=== PATIENT | male | born 1965 | race Caucasian/White ===

== ENCOUNTER 2017-09-22 14:44 | Inpatient (IN) | payer MEDICARE, OTHER ==
[~2017-09-22] VITALS: Ht 175.3 cm; Wt 86.6 kg
[~2017-09-22 14:44] MED LIST: CARV-50 PO; ENOX30SY10 SUBCUT; ENOX80SY7 SUBCUT; FURO40TA4 PO; LABE100T PO; LISI-600 PO; SPIR25TA5 PO
[2017-09-22 15:20] LABS: BASOPHILS % (AUTO) 0.4 % (0-1); EOSINOPHILS # (AUTO) 0.1 X10'3 (0-0.9); EOSINOPHILS % (AUTO) 0.9 % (0-6); HEMATOCRIT 46.5 % (42.0-52.0); HEMOGLOBIN 15.9 g/dl (14.0-17.9); LYMPHOCYTES # (AUTO) 1.6 X10'3 (1.1-4.8); LYMPHOCYTES % (AUTO) 24.1 % (21-51); MEAN CORPUSCULAR HEMOGLOBIN 32.8 PG (27.0-31.0); MEAN CORPUSCULAR HGB CONC 34.3 % (33.0-36.5); MEAN CORPUSCULAR VOLUME 95.7 FL (78-98); MONOCYTES # (AUTO) 0.4 X10'3 (0-0.9); MONOCYTES % (AUTO) 5.5 % (2-12); NEUTROPHILS # (AUTO) 4.7 X10'3 (1.8-7.7); NEUTROPHILS % (AUTO) 69.1 % (42-75); PLATELET COUNT 139 X10'3 (140-440); RED BLOOD COUNT 4.86 X10'6 (4.70-6.10); RED CELL DISTRIBUTION WIDTH 14.6 % (11.5-14.5); WHITE BLOOD COUNT 6.8 X10'3 (4.5-11.0)
[2017-09-22 15:37] LABS: INR 1.2 INR; PARTIAL THROMBOPLASTIN TIME 25 SECONDS (22-32)
[2017-09-22 15:41] LABS: ALANINE AMINOTRANSFERASE 45 U/L (12-78); ALBUMIN 3.6 G/DL (3.4-5.0); ALBUMIN/GLOBULIN RATIO 0.8 (1.1-1.5); ALKALINE PHOSPHATASE 70 IU/L (46-116); ANION GAP 10 (8-16); ASPARTATE AMINO TRANSFERASE 39 U/L (10-37); BILIRUBIN,TOTAL 1.1 MG/DL (0.1-1.0); BLOOD UREA NITROGEN 14 MG/DL (7-18); BUN/CREATININE RATIO 10.7 (5.4-32.0); CALCIUM 8.7 MG/DL (8.5-10.1); CHLORIDE 107 MMOL/L (99-107); CREATININE 1.31 MG/DL (0.60-1.10); GLUCOSE 110 MG/DL (70-104); POTASSIUM 3.8 MMOL/L (3.5-5.1); SODIUM 142 MMOL/L (135-145); TOTAL PROTEIN 7.9 G/DL (6.4-8.2); eGFR 57 ML/MIN
[2017-09-22] MEDS ORDERED: aspirin 81mg tab.chew PO ONE (16:10)
[2017-09-22] MEDS ORDERED: metoprolol tartrate 1mg/ml inj IV ONE ×3 (16:10→23:20)
[2017-09-22] MEDS ORDERED: hydrALAZINE 20mg/ml inj. IV ONE (16:40)
[2017-09-22] MEDS ORDERED: ondansetron/PF 4mg/2ml inj IV PRN (16:55)
[2017-09-22] MEDS ORDERED: morphine 4 MG/ML inj SYRINge IV PRN ×2 (16:55)
[2017-09-22] MEDS ORDERED: mag hydrox/Alum hydrox/simeth 30ml oral suspension PO PRN (16:55)
[2017-09-22] MEDS ORDERED: HYDROcodone/acetaminophen 5mg/325mg tablet PO PRN (16:55)
[2017-09-22] MEDS ORDERED: HYDROcodone/acetaminophen 10/325mg tab PO PRN (16:55)
[2017-09-22] MEDS ORDERED: magnesium hydroxide 30ml (MOM) UD suspension PO PRN (16:55)
[2017-09-22] MEDS ORDERED: furosemide 40mg/4ml inj IV SCH (16:55)
[2017-09-22] MEDS ORDERED: acetaminophen 325mg tablet PO PRN (16:55)
[2017-09-22] MEDS ORDERED: SPIR25TA5 PO (17:25)
[2017-09-22] MEDS ORDERED: WARF-55 PO (18:25)
[2017-09-22] MEDS ORDERED: FURO-150 PO (18:26)
[2017-09-22 19:00] VITALS: BP 145/111
[2017-09-22 23:00] VITALS: BP 167/120
[2017-09-22] MEDS ORDERED: metoprolol tartrate 25mg tablet PO ONE (23:20)
[2017-09-23] VITALS (7 sets, daily range): BP systolic 119–193; BP diastolic 75–117
[2017-09-23 04:00] LABS: BASOPHILS # (AUTO) 0.1 X10'3 (0-0.2); BASOPHILS % (AUTO) 0.8 % (0-1); EOSINOPHILS % (AUTO) 0.5 % (0-6); HEMATOCRIT 45.9 % (42.0-52.0); HEMOGLOBIN 15.9 g/dl (14.0-17.9); LYMPHOCYTES # (AUTO) 2.4 X10'3 (1.1-4.8); LYMPHOCYTES % (AUTO) 31.7 % (21-51); MEAN CORPUSCULAR HEMOGLOBIN 33.2 PG (27.0-31.0); MEAN CORPUSCULAR HGB CONC 34.5 % (33.0-36.5); MEAN PLATELET VOLUME 9.5 FL (7.4-10.4); MONOCYTES # (AUTO) 0.5 X10'3 (0-0.9); MONOCYTES % (AUTO) 6.2 % (2-12); NEUTROPHILS # (AUTO) 4.6 X10'3 (1.8-7.7); NEUTROPHILS % (AUTO) 60.8 % (42-75); PLATELET COUNT 141 X10'3 (140-440); RED BLOOD COUNT 4.79 X10'6 (4.70-6.10); RED CELL DISTRIBUTION WIDTH 14.4 % (11.5-14.5); WHITE BLOOD COUNT 7.5 X10'3 (4.5-11.0)
[2017-09-23 04:15] LABS: ALBUMIN 3.4 G/DL (3.4-5.0); ANION GAP 6 (8-16); BLOOD UREA NITROGEN 21 MG/DL (7-18); BUN/CREATININE RATIO 15.3 (5.4-32.0); CALCIUM 9.2 MG/DL (8.5-10.1); CHLORIDE 106 MMOL/L (99-107); CREATININE 1.37 MG/DL (0.60-1.10); GLUCOSE 102 MG/DL (70-104); POTASSIUM 3.9 MMOL/L (3.5-5.1); SODIUM 142 MMOL/L (135-145); TOTAL CARBON DIOXIDE 29.8 MMOL/L (24-32); eGFR 54 ML/MIN
[2017-09-23] MEDS ORDERED: pneumococcal 23-VAL P-sac vacc 25 mcg/0.5ml vial IMVAC ONE (06:25)
[2017-09-23] MEDS: furosemide 40mg/4ml inj IV SCH ×2 (07:53→19:46)
[2017-09-23] MEDS ORDERED: enoxaparin 40mg/0.4ml syringe SUBCUT SCH (08:00)
[2017-09-23] MEDS ORDERED: lisinopril 20mg tablet PO ONE (12:10)
[2017-09-23] MEDS ORDERED: carVEDilol 12.5mg tablet PO ONE (12:10)
[2017-09-23] MEDS: rivaroxaban 20mg tablet PO SCH (15:51)
[2017-09-23] MEDS: lisinopril 20mg tablet PO SCH (19:45)
[2017-09-23] MEDS: carVEDilol 12.5mg tablet PO SCH (19:45)
[2017-09-23] MEDS ORDERED: carVEDilol 12.5mg tablet PO SCH ×2 (20:00)
[2017-09-23] MEDS ORDERED: lisinopril 20mg tablet PO SCH ×2 (20:00)
[2017-09-23] MEDS ORDERED: LORazepam 0.5 MG tablet PO PRN (20:35)
[2017-09-24 03:00] VITALS: BP 139/101
[2017-09-24 05:38] LABS: INR 1.4 INR; PROTHROMBIN TIME 14.1 SECONDS (9.0-12.0)
[2017-09-24 05:46] LABS: BASOPHILS % (AUTO) 0.4 % (0-1); EOSINOPHILS # (AUTO) 0.1 X10'3 (0-0.9); EOSINOPHILS % (AUTO) 1.5 % (0-6); HEMATOCRIT 45.7 % (42.0-52.0); HEMOGLOBIN 15.7 g/dl (14.0-17.9); LYMPHOCYTES # (AUTO) 2.8 X10'3 (1.1-4.8); LYMPHOCYTES % (AUTO) 35.4 % (21-51); MEAN CORPUSCULAR HEMOGLOBIN 32.5 PG (27.0-31.0); MEAN CORPUSCULAR HGB CONC 34.3 % (33.0-36.5); MEAN CORPUSCULAR VOLUME 94.9 FL (78-98); MEAN PLATELET VOLUME 9.7 FL (7.4-10.4); MONOCYTES # (AUTO) 0.5 X10'3 (0-0.9); MONOCYTES % (AUTO) 5.8 % (2-12); NEUTROPHILS # (AUTO) 4.5 X10'3 (1.8-7.7); NEUTROPHILS % (AUTO) 56.9 % (42-75); PLATELET COUNT 142 X10'3 (140-440); RED BLOOD COUNT 4.81 X10'6 (4.70-6.10); RED CELL DISTRIBUTION WIDTH 14.5 % (11.5-14.5)
[2017-09-24 05:49] LABS: ALBUMIN 3.1 G/DL (3.4-5.0); ANION GAP 10 (8-16); BLOOD UREA NITROGEN 22 MG/DL (7-18); BUN/CREATININE RATIO 17.2 (5.4-32.0); CALCIUM 8.5 MG/DL (8.5-10.1); CHLORIDE 101 MMOL/L (99-107); CREATININE 1.28 MG/DL (0.60-1.10); GLUCOSE 118 MG/DL (70-104); POTASSIUM 3.2 MMOL/L (3.5-5.1); SODIUM 138 MMOL/L (135-145); TOTAL CARBON DIOXIDE 26.9 MMOL/L (24-32); eGFR 59 ML/MIN
[2017-09-24 06:00] VITALS: BP 139/95
[2017-09-24] MEDS: lisinopril 20mg tablet PO SCH (07:34)
[2017-09-24] MEDS: carVEDilol 12.5mg tablet PO SCH (07:34)
[2017-09-24] MEDS: furosemide 40mg/4ml inj IV SCH (07:35)
[2017-09-24] MEDS: rivaroxaban 20mg tablet PO SCH (07:35)
[2017-09-24] MEDS ORDERED: spironolactone 25 MG tablet PO SCH (08:00)
[2017-09-24 11:50] VITALS: BP 122/65
[2017-09-24] MEDS ORDERED: ASPI81TA52 PO (12:22)
[2017-09-24] MEDS ORDERED: RIVA20TA PO (12:22)
[2017-09-24] MEDS ORDERED: warfarin 5mg tablet PO SCH (21:00)
== END 2017-09-24 15:10 | disposition home or self-care (01) | DRG 291 ==
LOC: ER 14:44 → ED HOLD 16:51 → CMPBEDREQ 19:48 → PCU 3S 19:48
PROVIDERS: ADMIT Internal Medicine; ATTEND Family Medicine
DX: I13.0 Hypertensive heart and chronic kidney disease with heart failure and stage 1 through stage 4 chronic kidney disease, or unspecified chronic kidney disease (principal); J96.01 Acute respiratory failure with hypoxia; I50.23 Acute on chronic systolic (congestive) heart failure; N18.3 Chronic kidney disease, stage 3 (moderate); I16.0 Hypertensive urgency; I25.10 Atherosclerotic heart disease of native coronary artery without angina pectoris; G47.30 Sleep apnea, unspecified; J44.9 Chronic obstructive pulmonary disease, unspecified; F15.90 Other stimulant use, unspecified, uncomplicated; R74.8 Abnormal levels of other serum enzymes; I48.0 Paroxysmal atrial fibrillation; F17.210 Nicotine dependence, cigarettes, uncomplicated; I25.2 Old myocardial infarction; Z79.899 Other long term (current) drug therapy; Z79.82 Long term (current) use of aspirin; Z79.01 Long term (current) use of anticoagulants; Z86.711 Personal history of pulmonary embolism; Z83.3 Family history of diabetes mellitus; Z82.49 Family history of ischemic heart disease and other diseases of the circulatory system; Z23 Encounter for immunization
CPT/HCPCS: 36415; 71045; 80048; 80053; 83880; 84484; 85025; 85610; 85730; 87070; 90732; 93005; 93306; 96374; 96375; 96376; 99285; J0360; J1650; J1940; J3490

== ENCOUNTER 2017-12-10 16:35 | Inpatient (IN) | payer MEDICARE, OTHER ==
[~2017-12-10] VITALS: Ht 175.3 cm; Wt 77.7 kg
[~2017-12-10 16:35] MED LIST changes: +ASPI81TA52 PO; -ENOX30SY10 SUBCUT; -ENOX80SY7 SUBCUT; +FURO-150 PO; -FURO40TA4 PO; -LABE100T PO; +RIVA20TA PO; +etomidate 2mg/ml inj. ONE
[2017-12-10 17:33] LABS: BASOPHILS % (AUTO) 0.2 % (0-1); EOSINOPHILS # (AUTO) 0.1 X10'3 (0-0.9); EOSINOPHILS % (AUTO) 0.9 % (0-6); HEMATOCRIT 49.6 % (42.0-52.0); HEMOGLOBIN 16.5 g/dl (14.0-17.9); LYMPHOCYTES # (AUTO) 1.5 X10'3 (1.1-4.8); LYMPHOCYTES % (AUTO) 17.9 % (21-51); MEAN CORPUSCULAR HEMOGLOBIN 31.5 PG (27.0-31.0); MEAN CORPUSCULAR HGB CONC 33.3 % (33.0-36.5); MEAN CORPUSCULAR VOLUME 94.3 FL (78-98); MONOCYTES # (AUTO) 0.5 X10'3 (0-0.9); MONOCYTES % (AUTO) 5.9 % (2-12); NEUTROPHILS # (AUTO) 6.4 X10'3 (1.8-7.7); NEUTROPHILS % (AUTO) 75.1 % (42-75); PLATELET COUNT 220 X10'3 (140-440); RED BLOOD COUNT 5.25 X10'6 (4.70-6.10); RED CELL DISTRIBUTION WIDTH 15.7 % (11.5-14.5); WHITE BLOOD COUNT 8.6 X10'3 (4.5-11.0)
[2017-12-10 17:44] LABS: INR 1.7 INR; PROTHROMBIN TIME 17.3 SECONDS (9.0-12.0)
[2017-12-10 17:50] LABS: ALANINE AMINOTRANSFERASE 51 U/L (12-78); ALBUMIN 3.6 G/DL (3.4-5.0); ALBUMIN/GLOBULIN RATIO 0.8 (1.1-1.5); ALKALINE PHOSPHATASE 96 IU/L (46-116); ANION GAP 16 (8-16); ASPARTATE AMINO TRANSFERASE 68 U/L (10-37); BILIRUBIN,TOTAL 2.7 MG/DL (0.1-1.0); BLOOD UREA NITROGEN 24 MG/DL (7-18); BUN/CREATININE RATIO 15.3 (5.4-32.0); CALCIUM 9.1 MG/DL (8.5-10.1); CHLORIDE 106 MMOL/L (99-107); CREATININE 1.57 MG/DL (0.60-1.10); GLUCOSE 97 MG/DL (70-104); POTASSIUM 4.6 MMOL/L (3.5-5.1); SODIUM 145 MMOL/L (135-145); TOTAL CARBON DIOXIDE 23.2 MMOL/L (24-32); TOTAL PROTEIN 8.3 G/DL (6.4-8.2); eGFR 46 ML/MIN
[2017-12-10 17:58] LABS: LIPASE 57 U/L (73-393)
[2017-12-10] MEDS ORDERED: aspirin 81mg tab.chew PO ONE (19:00)
[2017-12-10 19:05] LABS: CLARITY,URINE CLEAR (Clear); COLOR,URINE YELLOW (Yellow); GLUCOSE, URINE NEGATIVE (Neg); KETONES,URINE NEGATIVE (Neg); LEUKOCYTE ESTERASE ,URINE NEGATIVE (Neg); NITRITES, URINE NEGATIVE (Neg); OCCULT BLOOD,URINE TRACE-INTACT (Neg); PROTEIN,URINE 30 mg/dl (Neg); UROBILINOGEN,URINE 0.2 E.U/dL (0.2-1.0)
[2017-12-10] MEDS ORDERED: LORazepam 2 mg/ml vial IV ONE (19:05)
[2017-12-10 19:13] LABS: UA COLLECTION TYPE VOIDED
[2017-12-10 19:22] LABS: BACTERIA,URINE NONE SEEN /HPF (Neg); MUCUS STRANDS NONE SEEN /LPF (Neg); RBC,URINE NONE SEEN /HPF (0-2); SQUAMOUS EPITHELIAL CELL,UR FEW /LPF (FEW); WBC,URINE NONE SEEN /HPF (0-4)
[2017-12-10] MEDS ORDERED: SPIRONOLACT TAB 25MG (19:30)
[2017-12-10] MEDS ORDERED: CARVEDILOL 12.5 MG (19:30)
[2017-12-10] MEDS ORDERED: LABETALOL 100 MG (19:30)
[2017-12-10] MEDS ORDERED: LISINOPRIL 20 MG (19:30)
[2017-12-10] MEDS ORDERED: FUROSEMIDE TAB 40MG (19:30)
[2017-12-10 19:59] LABS: URINE AMPHETAMINE SCREEN POSITIVE (Neg); URINE BARBITUATE SCREEN NEGATIVE (Neg); URINE BENZODIAZEPINES SCREEN NEGATIVE (Neg); URINE CANNABINOID SCREEN POSITIVE (Neg); URINE COCAINE SCREEN NEGATIVE (Neg); URINE METHADONE SCREEN NEGATIVE (Neg); URINE OPIATE SCREEN NEGATIVE (Neg); URINE PHENCYCLIDINE SCREEN NEGATIVE (Neg)
[2017-12-10] MEDS ORDERED: etomidate 2mg/ml inj. IV ONE ×2 (20:40→21:25)
[2017-12-10] MEDS ORDERED: midazolam 100mg in NS 100ml 100 ML IV ONE (20:40)
[2017-12-10] MEDS ORDERED: succinylcholine 20mg/ml inj IV ONE (20:40)
[2017-12-10] MEDS ORDERED: fentaNYL/PF 50MCG/1 ML 2ML syringe IV ONE (20:40)
[2017-12-10] MEDS: FENTANYL-0.9 % NACL/PF 100 ML IV PRN (21:20)
[2017-12-10] MEDS ORDERED: midazolam 100mg in NS 100ml 100 ML IV PRN (21:51)
[2017-12-10] MEDS ORDERED: FENTANYL-0.9 % NACL/PF 100 ML IV PRN (21:51)
[2017-12-10] MEDS ORDERED: potassium Cl 40MEQ/250ML bag 250 ML IV PRN (21:55)
[2017-12-10] MEDS ORDERED: potassium Cl 40MEQ/250ML bag 250 ML IV SCH (21:55)
[2017-12-10] MEDS ORDERED: acetaminophen 325mg tablet PO PRN ×2 (21:55)
[2017-12-10] MEDS ORDERED: morphine 2 MG/ML inj. syringe IV PRN (21:55)
[2017-12-10] MEDS ORDERED: morphine 4 MG/ML inj SYRINge IV PRN (21:55)
[2017-12-10] MEDS ORDERED: ipratropium/albuterol 3ml nebule NEB PRN (21:55)
[2017-12-10] MEDS ORDERED: ondansetron/PF 4mg/2ml inj IV PRN (21:55)
[2017-12-10] MEDS ORDERED: potassium Cl 20 mEq SR tablet PO PRN ×2 (21:55)
[2017-12-10 22:11] LABS: ABG BASE EXCESS -11.7 mmol/L (-2.0-3.0); ABG HCO3 14.5 mmol/L (22.0-26.0); ABG OXYGEN SATURATION 99.2 % (95-98); ABG PCO2 (T) 35.5 mmHg (35.0-48.0); ABG PH (T) 7.233 (7.350-7.450); ALLEN'S TEST Positive; FCOHb 0.8 % (0.5-1.5); FMetHb 0.4 % (0.3-1.12); MINUTE VOLUME 16 L/min; PATIENT TEMPERATURE 37.6; PEEP 5 cm H2O; RESPIRATORY RATE 16 b/min; RESPIRATORY RATE (OBSERVED) 30 b/min; TIDAL VOLUME 500 mL; TOTAL HEMOGLOBIN 17.9 G/dl (14.0-18.0)
[2017-12-10] MEDS: K, MAG and/or Phos replacement - Verify level? MC SCH (22:50)
[2017-12-10] MEDS: normal saline 1000ml 1,000 ML IV SCH (22:50)
[2017-12-10 23:00] VITALS: BP 203/97
[2017-12-11] VITALS (24 sets, daily range): BP systolic 121–185; BP diastolic 62–108
[2017-12-11] MEDS: normal saline 1000ml 1,000 ML IV SCH ×2 (02:19→16:47)
[2017-12-11] MEDS: propofol 1000mg/100ml bottle 100 ML IV PRN ×2 (02:19→20:37)
[2017-12-11 02:46] LABS: ABG BASE EXCESS -5.1 mmol/L (-2.0-3.0); ABG HCO3 20.5 mmol/L (22.0-26.0); ABG PCO2 (T) 40.5 mmHg (35.0-48.0); ABG PH (T) 7.323 (7.350-7.450); ABG PO2 (T) 184.2 mmHg (83-108); ALLEN'S TEST Positive; FCOHb 0.5 % (0.5-1.5); FMetHb 0.4 % (0.3-1.12); FO2Hb 98.1 % (94-100); MINUTE VOLUME 9 L/min; PATIENT TEMPERATURE 37.4; PEEP 5 cm H2O; RESPIRATORY RATE 16 b/min; RESPIRATORY RATE (OBSERVED) 17 b/min; TIDAL VOLUME 500 mL; TOTAL HEMOGLOBIN 15.7 G/dl (14.0-18.0)
[2017-12-11 04:06] LABS: ABG BASE EXCESS -5.4 mmol/L (-2.0-3.0); ABG HCO3 19.8 mmol/L (22.0-26.0); ABG OXYGEN SATURATION 96.4 % (95-98); ABG PCO2 (T) 38.1 mmHg (35.0-48.0); ABG PH (T) 7.335 (7.350-7.450); ABG PO2 (T) 98.3 mmHg (83-108); ALLEN'S TEST Positive; FCOHb 0.4 % (0.5-1.5); FMetHb 0.3 % (0.3-1.12); FO2Hb 95.7 % (94-100); MINUTE VOLUME 8 L/min; PATIENT TEMPERATURE 37.3; PEEP 5 cm H2O; RESPIRATORY RATE 16 b/min; RESPIRATORY RATE (OBSERVED) 16 b/min; TIDAL VOLUME 500 mL; TOTAL HEMOGLOBIN 15.4 G/dl (14.0-18.0)
[2017-12-11 04:09] LABS: BASOPHILS % (AUTO) 0.1 % (0-1); EOSINOPHILS # (AUTO) 0.1 X10'3 (0-0.9); EOSINOPHILS % (AUTO) 0.7 % (0-6); HEMATOCRIT 43.3 % (42.0-52.0); HEMOGLOBIN 14.5 g/dl (14.0-17.9); LYMPHOCYTES # (AUTO) 1.7 X10'3 (1.1-4.8); LYMPHOCYTES % (AUTO) 18.6 % (21-51); MEAN CORPUSCULAR HEMOGLOBIN 31.4 PG (27.0-31.0); MEAN CORPUSCULAR HGB CONC 33.5 % (33.0-36.5); MEAN PLATELET VOLUME 8.9 FL (7.4-10.4); MONOCYTES # (AUTO) 0.7 X10'3 (0-0.9); MONOCYTES % (AUTO) 7.6 % (2-12); NEUTROPHILS # (AUTO) 6.7 X10'3 (1.8-7.7); PLATELET COUNT 180 X10'3 (140-440); RED BLOOD COUNT 4.61 X10'6 (4.70-6.10); RED CELL DISTRIBUTION WIDTH 15.1 % (11.5-14.5); WHITE BLOOD COUNT 9.2 X10'3 (4.5-11.0)
[2017-12-11 04:26] LABS: ALANINE AMINOTRANSFERASE 43 U/L (12-78); ALBUMIN 2.8 G/DL (3.4-5.0); ALBUMIN/GLOBULIN RATIO 0.7 (1.1-1.5); ALKALINE PHOSPHATASE 74 IU/L (46-116); ANION GAP 11 (8-16); ASPARTATE AMINO TRANSFERASE 62 U/L (10-37); BILIRUBIN,TOTAL 1.8 MG/DL (0.1-1.0); BLOOD UREA NITROGEN 30 MG/DL (7-18); CHLORIDE 114 MMOL/L (99-107); CREATININE 1.67 MG/DL (0.60-1.10); GLUCOSE 109 MG/DL (70-104); PHOSPHORUS 4.9 MG/DL (2.3-4.5); POTASSIUM 4.3 MMOL/L (3.5-5.1); SODIUM 149 MMOL/L (135-145); TOTAL CARBON DIOXIDE 23.9 MMOL/L (24-32); TOTAL PROTEIN 6.7 G/DL (6.4-8.2); TROPONIN I 0.21 NG/ML (0.0-0.05); eGFR 43 ML/MIN
[2017-12-11] MEDS ORDERED: midazolam 100mg in NS 100ml 100 ML IV ONE (05:45)
[2017-12-11] MEDS: FENTANYL-0.9 % NACL/PF 100 ML IV PRN ×2 (06:57→17:00)
[2017-12-11] MEDS ORDERED: LABE100T5 PO (07:31)
[2017-12-11] MEDS ORDERED: SPIR25TA5 PO (07:31)
[2017-12-11] MEDS: pantoprazole 40 MG vial IV SCH (07:49)
[2017-12-11] MEDS: K, MAG and/or Phos replacement - Verify level? MC SCH (08:30)
[2017-12-11] MEDS ORDERED: OLANZapine 2.5MG tablet PO SCH (10:45)
[2017-12-11] MEDS ORDERED: olanzapine 10mg tablet PO SCH (10:47)
[2017-12-11] MEDS ORDERED: RIVA20TA PO (10:53)
[2017-12-11] MEDS ORDERED: ASPI-611 PO (10:54)
[2017-12-11] MEDS: midazolam 100mg in NS 100ml 100 ML IV SCH (12:29)
[2017-12-11] MEDS ORDERED: labetalol 100mg tablet PO SCH (13:00)
[2017-12-11] MEDS ORDERED: acetaminophen 325mg tablet PEG PRN (13:31)
[2017-12-11] MEDS ORDERED: potassium Cl oral solution 20 MEQ/15 ML PO PRN (13:35)
[2017-12-11] MEDS: carVEDilol 12.5mg tablet PEG SCH (20:37)
[2017-12-11] MEDS: labetalol 100mg tablet PEG SCH (22:54)
[2017-12-12] VITALS (24 sets, daily range): BP systolic 109–170; BP diastolic 60–107
[2017-12-12] MEDS: midazolam 100mg in NS 100ml 100 ML IV SCH (00:49)
[2017-12-12] MEDS: mineral oil/petrolatum ophthal oint EACHEYE SCH ×4 (02:18→22:00)
[2017-12-12 03:20] LABS: BASOPHILS % (AUTO) 0.5 % (0-1); EOSINOPHILS # (AUTO) 0.1 X10'3 (0-0.9); EOSINOPHILS % (AUTO) 1.2 % (0-6); HEMOGLOBIN 14.2 g/dl (14.0-17.9); LYMPHOCYTES # (AUTO) 1.6 X10'3 (1.1-4.8); LYMPHOCYTES % (AUTO) 18.1 % (21-51); MEAN CORPUSCULAR HEMOGLOBIN 31.5 PG (27.0-31.0); MEAN CORPUSCULAR VOLUME 95.5 FL (78-98); MEAN PLATELET VOLUME 9.1 FL (7.4-10.4); MONOCYTES # (AUTO) 0.5 X10'3 (0-0.9); MONOCYTES % (AUTO) 5.9 % (2-12); NEUTROPHILS # (AUTO) 6.7 X10'3 (1.8-7.7); NEUTROPHILS % (AUTO) 74.3 % (42-75); PLATELET COUNT 154 X10'3 (140-440); RED BLOOD COUNT 4.51 X10'6 (4.70-6.10); RED CELL DISTRIBUTION WIDTH 15.7 % (11.5-14.5); WHITE BLOOD COUNT 9.1 X10'3 (4.5-11.0)
[2017-12-12] MEDS: FENTANYL-0.9 % NACL/PF 100 ML IV PRN (03:26)
[2017-12-12 03:34] LABS: ALANINE AMINOTRANSFERASE 40 U/L (12-78); ALBUMIN 2.3 G/DL (3.4-5.0); ALBUMIN/GLOBULIN RATIO 0.6 (1.1-1.5); ALKALINE PHOSPHATASE 61 IU/L (46-116); ANION GAP 7 (8-16); ASPARTATE AMINO TRANSFERASE 52 U/L (10-37); BLOOD UREA NITROGEN 34 MG/DL (7-18); BUN/CREATININE RATIO 19.8 (5.4-32.0); CHLORIDE 115 MMOL/L (99-107); CREATININE 1.72 MG/DL (0.60-1.10); GLUCOSE 102 MG/DL (70-104); MAGNESIUM 1.8 MG/DL (1.5-2.4); SODIUM 148 MMOL/L (135-145); TOTAL CARBON DIOXIDE 26.5 MMOL/L (24-32); eGFR 42 ML/MIN
[2017-12-12 05:16] LABS: ABG BASE EXCESS -3.3 mmol/L (-2.0-3.0); ABG HCO3 22.1 mmol/L (22.0-26.0); ABG OXYGEN SATURATION 94.3 % (95-98); ABG PCO2 (T) 41.7 mmHg (35.0-48.0); ABG PH (T) 7.343 (7.350-7.450); ALLEN'S TEST Positive; FCOHb 0.7 % (0.5-1.5); FMetHb 0.4 % (0.3-1.12); FO2Hb 93.3 % (94-100); MINUTE VOLUME 9 L/min; PATIENT TEMPERATURE 37.4; PEEP 5 cm H2O; RESPIRATORY RATE 16 b/min; RESPIRATORY RATE (OBSERVED) 16 b/min; TIDAL VOLUME 500 mL; TOTAL HEMOGLOBIN 15.2 G/dl (14.0-18.0)
[2017-12-12] MEDS: olanzapine 10mg tablet PEG SCH (07:14)
[2017-12-12] MEDS: labetalol 100mg tablet PEG SCH ×3 (07:14→22:00)
[2017-12-12] MEDS: carVEDilol 12.5mg tablet PEG SCH ×2 (07:14→21:59)
[2017-12-12] MEDS: pantoprazole 40 MG vial IV SCH (07:15)
[2017-12-12] MEDS: normal saline 1000ml 1,000 ML IV SCH ×2 (07:15→22:00)
[2017-12-12] MEDS ORDERED: non-formulary drug (Aspirin (Aspir 81) 1 TAB) PO SCH (08:00)
[2017-12-12] MEDS: K, MAG and/or Phos replacement - Verify level? MC SCH (08:00)
[2017-12-12] MEDS: aspirin 81mg tab.chew PEG SCH (09:22)
[2017-12-12] MEDS: magnesium 1gm/100ml D5W IVPB 100 ML IV SCH ×2 (13:37→14:42)
[2017-12-13] VITALS (23 sets, daily range): BP systolic 109–167; BP diastolic 57–102
[2017-12-13] MEDS: mineral oil/petrolatum ophthal oint EACHEYE SCH ×4 (02:00→20:52)
[2017-12-13 03:36] LABS: ANION GAP 9 (8-16); BLOOD UREA NITROGEN 33 MG/DL (7-18); CHLORIDE 113 MMOL/L (99-107); GLUCOSE 156 MG/DL (70-104); SODIUM 147 MMOL/L (135-145); TOTAL CARBON DIOXIDE 24.6 MMOL/L (24-32)
[2017-12-13 03:37] LABS: ALANINE AMINOTRANSFERASE 39 U/L (12-78); ALBUMIN 2.3 G/DL (3.4-5.0); ALBUMIN/GLOBULIN RATIO 0.6 (1.1-1.5); ALKALINE PHOSPHATASE 70 IU/L (46-116); ASPARTATE AMINO TRANSFERASE 47 U/L (10-37); BILIRUBIN,TOTAL 0.9 MG/DL (0.1-1.0); BUN/CREATININE RATIO 22.9 (5.4-32.0); CALCIUM 7.4 MG/DL (8.5-10.1); CREATININE 1.44 MG/DL (0.60-1.10); PHOSPHORUS 2.5 MG/DL (2.3-4.5); TOTAL PROTEIN 6.4 G/DL (6.4-8.2); eGFR 51 ML/MIN
[2017-12-13 03:41] LABS: POTASSIUM 4.8 MMOL/L (3.5-5.1)
[2017-12-13 04:16] LABS: ABG BASE EXCESS -3.4 mmol/L (-2.0-3.0); ABG HCO3 21.9 mmol/L (22.0-26.0); ABG OXYGEN SATURATION 95.9 % (95-98); ABG PCO2 (T) 42.6 mmHg (35.0-48.0); ABG PH (T) 7.335 (7.350-7.450); ABG PO2 (T) 92.3 mmHg (83-108); ALLEN'S TEST Positive; FCOHb 0.6 % (0.5-1.5); FMetHb 0.2 % (0.3-1.12); FO2Hb 95.1 % (94-100); MINUTE VOLUME 9 L/min; PATIENT TEMPERATURE 38.2; PEEP 5 cm H2O; RESPIRATORY RATE 16 b/min; RESPIRATORY RATE (OBSERVED) 16 b/min; TIDAL VOLUME 500 mL; TOTAL HEMOGLOBIN 15.7 G/dl (14.0-18.0)
[2017-12-13 06:36] LABS: HEMATOCRIT 44.3 % (42.0-52.0); HEMOGLOBIN 14.6 g/dl (14.0-17.9); MEAN CORPUSCULAR HEMOGLOBIN 31.7 PG (27.0-31.0); MEAN CORPUSCULAR HGB CONC 33.1 % (33.0-36.5); MEAN CORPUSCULAR VOLUME 95.8 FL (78-98); MEAN PLATELET VOLUME 9.4 FL (7.4-10.4); PLATELET COUNT 141 X10'3 (140-440); RED BLOOD COUNT 4.62 X10'6 (4.70-6.10); RED CELL DISTRIBUTION WIDTH 15.8 % (11.5-14.5); WHITE BLOOD COUNT 8.9 X10'3 (4.5-11.0)
[2017-12-13 07:31] LABS: ANISOCYTOSIS 1+; PLATELET ESTIMATE NORMAL; TOTAL CELLS COUNTED 100
[2017-12-13] MEDS: K, MAG and/or Phos replacement - Verify level? MC SCH (08:00)
[2017-12-13] MEDS: pantoprazole 40 MG vial IV SCH (08:33)
[2017-12-13] MEDS: carVEDilol 12.5mg tablet PEG SCH ×2 (08:33→20:52)
[2017-12-13] MEDS: aspirin 81mg tab.chew PEG SCH (08:33)
[2017-12-13] MEDS: olanzapine 10mg tablet PEG SCH (08:34)
[2017-12-13] MEDS: labetalol 100mg tablet PEG SCH ×3 (08:34→20:52)
[2017-12-13] MEDS: midazolam 100mg in NS 100ml 100 ML IV SCH (12:25)
[2017-12-13] MEDS: normal saline 1000ml 1,000 ML IV SCH (12:55)
[2017-12-13] MEDS: piperacillin/tazo 3.375gm/50ml 50 ML IV SCH (16:43)
[2017-12-14] VITALS (24 sets, daily range): BP systolic 112–163; BP diastolic 53–99
[2017-12-14] MEDS: piperacillin/tazo 3.375gm/50ml 50 ML IV SCH ×3 (00:51→15:25)
[2017-12-14] MEDS: normal saline 1000ml 1,000 ML IV SCH ×2 (00:51→15:25)
[2017-12-14] MEDS: mineral oil/petrolatum ophthal oint EACHEYE SCH ×4 (03:20→20:02)
[2017-12-14 03:35] LABS: BASOPHILS % (AUTO) 0.4 % (0-1); EOSINOPHILS # (AUTO) 0.1 X10'3 (0-0.9); EOSINOPHILS % (AUTO) 2.1 % (0-6); HEMATOCRIT 41.7 % (42.0-52.0); HEMOGLOBIN 13.7 g/dl (14.0-17.9); LYMPHOCYTES # (AUTO) 1.5 X10'3 (1.1-4.8); LYMPHOCYTES % (AUTO) 21.7 % (21-51); MEAN CORPUSCULAR HEMOGLOBIN 31.7 PG (27.0-31.0); MEAN CORPUSCULAR VOLUME 96.2 FL (78-98); MEAN PLATELET VOLUME 9.1 FL (7.4-10.4); MONOCYTES # (AUTO) 0.5 X10'3 (0-0.9); MONOCYTES % (AUTO) 6.7 % (2-12); NEUTROPHILS # (AUTO) 4.7 X10'3 (1.8-7.7); NEUTROPHILS % (AUTO) 69.1 % (42-75); PLATELET COUNT 122 X10'3 (140-440); RED BLOOD COUNT 4.33 X10'6 (4.70-6.10); RED CELL DISTRIBUTION WIDTH 16.1 % (11.5-14.5); WHITE BLOOD COUNT 6.8 X10'3 (4.5-11.0)
[2017-12-14 03:41] LABS: ABG BASE EXCESS -2.9 mmol/L (-2.0-3.0); ABG HCO3 21.4 mmol/L (22.0-26.0); ABG PCO2 (T) 35.6 mmHg (35.0-48.0); ABG PH (T) 7.396 (7.350-7.450); FCOHb 0.6 % (0.5-1.5); FMetHb 0.1 % (0.3-1.12); FO2Hb 95.3 % (94-100); MINUTE VOLUME 11 L/min; PATIENT TEMPERATURE 36.6; PEEP 5 cm H2O; RESPIRATORY RATE 16 b/min; RESPIRATORY RATE (OBSERVED) 17 b/min; TIDAL VOLUME 500 mL; TOTAL HEMOGLOBIN 14.8 G/dl (14.0-18.0)
[2017-12-14 03:49] LABS: ALANINE AMINOTRANSFERASE 29 U/L (12-78); ALBUMIN 1.9 G/DL (3.4-5.0); ALBUMIN/GLOBULIN RATIO 0.5 (1.1-1.5); ALKALINE PHOSPHATASE 55 IU/L (46-116); ANION GAP 8 (8-16); ASPARTATE AMINO TRANSFERASE 29 U/L (10-37); BLOOD UREA NITROGEN 29 MG/DL (7-18); BUN/CREATININE RATIO 23.2 (5.4-32.0); CALCIUM 7.7 MG/DL (8.5-10.1); CHLORIDE 114 MMOL/L (99-107); CREATININE 1.25 MG/DL (0.60-1.10); GLUCOSE 134 MG/DL (70-104); MAGNESIUM 1.8 MG/DL (1.5-2.4); PHOSPHORUS 2.5 MG/DL (2.3-4.5); POTASSIUM 3.9 MMOL/L (3.5-5.1); PREALBUMIN 8.3 MG/DL (19-36); SODIUM 149 MMOL/L (135-145); TOTAL CARBON DIOXIDE 27.5 MMOL/L (24-32); TOTAL PROTEIN 5.7 G/DL (6.4-8.2); eGFR 60 ML/MIN
[2017-12-14] MEDS: pantoprazole 40 MG vial IV SCH (07:42)
[2017-12-14] MEDS: aspirin 81mg tab.chew PEG SCH (07:45)
[2017-12-14] MEDS: carVEDilol 12.5mg tablet PEG SCH ×2 (07:45→20:02)
[2017-12-14] MEDS: labetalol 100mg tablet PEG SCH ×3 (07:45→21:51)
[2017-12-14] MEDS: olanzapine 10mg tablet PEG SCH (07:45)
[2017-12-14] MEDS: K, MAG and/or Phos replacement - Verify level? MC SCH (08:00)
[2017-12-14] MEDS: FENTANYL-0.9 % NACL/PF 100 ML IV PRN (10:53)
[2017-12-14] MEDS: midazolam 100mg in NS 100ml 100 ML IV SCH (10:53)
[2017-12-15] VITALS (24 sets, daily range): BP systolic 105–163; BP diastolic 67–105
[2017-12-15] MEDS: piperacillin/tazo 3.375gm/50ml 50 ML IV SCH ×4 (00:04→23:10)
[2017-12-15] MEDS: mineral oil/petrolatum ophthal oint EACHEYE SCH ×4 (02:07→20:54)
[2017-12-15 02:22] LABS: BASOPHILS % (AUTO) 0.3 % (0-1); EOSINOPHILS # (AUTO) 0.3 X10'3 (0-0.9); EOSINOPHILS % (AUTO) 4.1 % (0-6); HEMATOCRIT 41.6 % (42.0-52.0); HEMOGLOBIN 13.7 g/dl (14.0-17.9); LYMPHOCYTES # (AUTO) 1.6 X10'3 (1.1-4.8); LYMPHOCYTES % (AUTO) 24.2 % (21-51); MEAN CORPUSCULAR HEMOGLOBIN 31.6 PG (27.0-31.0); MEAN CORPUSCULAR HGB CONC 32.9 % (33.0-36.5); MEAN CORPUSCULAR VOLUME 96.2 FL (78-98); MONOCYTES # (AUTO) 0.5 X10'3 (0-0.9); MONOCYTES % (AUTO) 7.5 % (2-12); NEUTROPHILS # (AUTO) 4.2 X10'3 (1.8-7.7); NEUTROPHILS % (AUTO) 63.9 % (42-75); PLATELET COUNT 121 X10'3 (140-440); RED BLOOD COUNT 4.33 X10'6 (4.70-6.10); RED CELL DISTRIBUTION WIDTH 16.2 % (11.5-14.5); WHITE BLOOD COUNT 6.6 X10'3 (4.5-11.0)
[2017-12-15] MEDS: normal saline 1000ml 1,000 ML IV SCH (02:36)
[2017-12-15 02:38] LABS: ALANINE AMINOTRANSFERASE 24 U/L (12-78); ALBUMIN 1.8 G/DL (3.4-5.0); ALBUMIN/GLOBULIN RATIO 0.5 (1.1-1.5); ALKALINE PHOSPHATASE 46 IU/L (46-116); ANION GAP 7 (8-16); ASPARTATE AMINO TRANSFERASE 26 U/L (10-37); BILIRUBIN,TOTAL 0.9 MG/DL (0.1-1.0); BLOOD UREA NITROGEN 26 MG/DL (7-18); BUN/CREATININE RATIO 22.2 (5.4-32.0); CALCIUM 7.9 MG/DL (8.5-10.1); CHLORIDE 114 MMOL/L (99-107); CREATININE 1.17 MG/DL (0.60-1.10); GLUCOSE 102 MG/DL (70-104); MAGNESIUM 1.5 MG/DL (1.5-2.4); POTASSIUM 3.8 MMOL/L (3.5-5.1); SODIUM 148 MMOL/L (135-145); TOTAL CARBON DIOXIDE 27.4 MMOL/L (24-32); TOTAL PROTEIN 5.7 G/DL (6.4-8.2); eGFR 65 ML/MIN
[2017-12-15 03:51] LABS: ABG BASE EXCESS -3.6 mmol/L (-2.0-3.0); ABG HCO3 21.2 mmol/L (22.0-26.0); ABG OXYGEN SATURATION 97.1 % (95-98); ABG PCO2 (T) 37.2 mmHg (35.0-48.0); ABG PH (T) 7.372 (7.350-7.450); ABG PO2 (T) 93.9 mmHg (83-108); ALLEN'S TEST Positive; FCOHb 0.8 % (0.5-1.5); FMetHb 0.1 % (0.3-1.12); FO2Hb 96.2 % (94-100); MINUTE VOLUME 9 L/min; PATIENT TEMPERATURE 36.5; PEEP 5 cm H2O; RESPIRATORY RATE 16 b/min; RESPIRATORY RATE (OBSERVED) 18 b/min; TIDAL VOLUME 500 mL; TOTAL HEMOGLOBIN 14.7 G/dl (14.0-18.0)
[2017-12-15] MEDS: labetalol 100mg tablet PEG SCH ×3 (07:01→20:54)
[2017-12-15] MEDS: carVEDilol 12.5mg tablet PEG SCH ×2 (07:01→20:54)
[2017-12-15] MEDS: olanzapine 10mg tablet PEG SCH (07:23)
[2017-12-15] MEDS: pantoprazole 40 MG vial IV SCH (07:23)
[2017-12-15] MEDS: aspirin 81mg tab.chew PEG SCH (07:23)
[2017-12-15] MEDS: K, MAG and/or Phos replacement - Verify level? MC SCH (08:00)
[2017-12-15] MEDS: dexmedetomidin/NS 400mcg/100ml 100 ML IV SCH ×3 (10:10→23:10)
[2017-12-15] MEDS: FENTANYL-0.9 % NACL/PF 100 ML IV PRN (10:10)
[2017-12-15] MEDS: midazolam 100mg in NS 100ml 100 ML IV SCH (12:25)
[2017-12-16] VITALS (24 sets, daily range): BP systolic 158–196; BP diastolic 84–124
[2017-12-16] MEDS: mineral oil/petrolatum ophthal oint EACHEYE SCH ×5 (02:07→22:38)
[2017-12-16] MEDS: midazolam 100mg in NS 100ml 100 ML IV SCH (02:42)
[2017-12-16] MEDS: dexmedetomidin/NS 400mcg/100ml 100 ML IV SCH ×4 (02:42→20:23)
[2017-12-16] MEDS: FENTANYL-0.9 % NACL/PF 100 ML IV PRN (02:43)
[2017-12-16 02:44] LABS: BASOPHILS % (AUTO) 0.4 % (0-1); EOSINOPHILS # (AUTO) 0.2 X10'3 (0-0.9); EOSINOPHILS % (AUTO) 3.2 % (0-6); HEMATOCRIT 47.1 % (42.0-52.0); HEMOGLOBIN 15.2 g/dl (14.0-17.9); LYMPHOCYTES # (AUTO) 1.9 X10'3 (1.1-4.8); LYMPHOCYTES % (AUTO) 25.3 % (21-51); MEAN CORPUSCULAR HGB CONC 32.2 % (33.0-36.5); MEAN CORPUSCULAR VOLUME 96.3 FL (78-98); MEAN PLATELET VOLUME 9.8 FL (7.4-10.4); MONOCYTES # (AUTO) 0.5 X10'3 (0-0.9); MONOCYTES % (AUTO) 6.4 % (2-12); NEUTROPHILS # (AUTO) 4.9 X10'3 (1.8-7.7); NEUTROPHILS % (AUTO) 64.7 % (42-75); PLATELET COUNT 131 X10'3 (140-440); RED BLOOD COUNT 4.89 X10'6 (4.70-6.10); RED CELL DISTRIBUTION WIDTH 15.9 % (11.5-14.5); WHITE BLOOD COUNT 7.6 X10'3 (4.5-11.0)
[2017-12-16 02:55] LABS: ABG BASE EXCESS -3.4 mmol/L (-2.0-3.0); ABG HCO3 20.4 mmol/L (22.0-26.0); ABG OXYGEN SATURATION 96.1 % (95-98); ABG PCO2 (T) 35.3 mmHg (35.0-48.0); ABG PH (T) 7.385 (7.350-7.450); ALLEN'S TEST Positive; FCOHb 0.9 % (0.5-1.5); FMetHb 0.3 % (0.3-1.12); FO2Hb 94.9 % (94-100); MINUTE VOLUME 11 L/min; PATIENT TEMPERATURE 37.9; PEEP 5 cm H2O; RESPIRATORY RATE 16 b/min; RESPIRATORY RATE (OBSERVED) 21 b/min; TIDAL VOLUME 500 mL; TOTAL HEMOGLOBIN 16.4 G/dl (14.0-18.0)
[2017-12-16 02:57] LABS: ALANINE AMINOTRANSFERASE 21 U/L (12-78); ALBUMIN 2.1 G/DL (3.4-5.0); ALBUMIN/GLOBULIN RATIO 0.5 (1.1-1.5); ALKALINE PHOSPHATASE 52 IU/L (46-116); ANION GAP 9 (8-16); ASPARTATE AMINO TRANSFERASE 26 U/L (10-37); BILIRUBIN,TOTAL 1.1 MG/DL (0.1-1.0); BLOOD UREA NITROGEN 24 MG/DL (7-18); BUN/CREATININE RATIO 19.8 (5.4-32.0); CALCIUM 8.5 MG/DL (8.5-10.1); CHLORIDE 112 MMOL/L (99-107); CREATININE 1.21 MG/DL (0.60-1.10); GLUCOSE 108 MG/DL (70-104); MAGNESIUM 1.4 MG/DL (1.5-2.4); PHOSPHORUS 3.6 MG/DL (2.3-4.5); POTASSIUM 4.1 MMOL/L (3.5-5.1); SODIUM 147 MMOL/L (135-145); TOTAL CARBON DIOXIDE 25.7 MMOL/L (24-32); TOTAL PROTEIN 6.3 G/DL (6.4-8.2); eGFR 63 ML/MIN
[2017-12-16] MEDS ORDERED: magnesium 4gm in 100ml NS 100 ML IV PRN (03:10)
[2017-12-16] MEDS ORDERED: magnesium Cl slow-release 64mg tablet PO PRN (03:10)
[2017-12-16] MEDS: pantoprazole 40 MG vial IV SCH (07:30)
[2017-12-16] MEDS: piperacillin/tazo 3.375gm/50ml 50 ML IV SCH ×3 (07:30→23:36)
[2017-12-16] MEDS: carVEDilol 12.5mg tablet PEG SCH ×2 (07:30→20:14)
[2017-12-16] MEDS: labetalol 100mg tablet PEG SCH ×3 (07:30→20:14)
[2017-12-16] MEDS: olanzapine 10mg tablet PEG SCH (07:30)
[2017-12-16] MEDS: aspirin 81mg tab.chew PEG SCH (07:36)
[2017-12-16] MEDS: K, MAG and/or Phos replacement - Verify level? MC SCH (08:00)
[2017-12-16 10:15] LABS: ABG BASE EXCESS -5.1 mmol/L (-2.0-3.0); ABG HCO3 19.7 mmol/L (22.0-26.0); ABG OXYGEN SATURATION 99.7 % (95-98); ABG PCO2 (T) 37.9 mmHg (35.0-48.0); ABG PH (T) 7.338 (7.350-7.450); ABG PO2 (T) 303.1 mmHg (83-108); ALLEN'S TEST Positive; FCOHb 0.6 % (0.5-1.5); FMetHb 0.3 % (0.3-1.12); FO2Hb 98.8 % (94-100); RESPIRATORY RATE 20 b/min; RESPIRATORY RATE (OBSERVED) 28 b/min; TOTAL HEMOGLOBIN 16.1 G/dl (14.0-18.0)
[2017-12-16 15:31] LABS: ABG BASE EXCESS -4.6 mmol/L (-2.0-3.0); ABG OXYGEN SATURATION 93.2 % (95-98); ABG PH (T) 7.426 (7.350-7.450); ABG PO2 (T) 68.3 mmHg (83-108); FCOHb 1.1 % (0.5-1.5); FLOW 4 L/min; FMetHb 0.2 % (0.3-1.12); TOTAL HEMOGLOBIN 16.4 G/dl (14.0-18.0)
[2017-12-16] MEDS: hydrALAZINE 20mg/ml inj. IV PRN (15:58)
[2017-12-16] MEDS ORDERED: normal saline 1000ml 1,000 ML IV SCH (19:00)
[2017-12-17] VITALS (22 sets, daily range): BP systolic 159–197; BP diastolic 87–119
[2017-12-17] MEDS ORDERED: LORazepam 2 mg/ml vial IM ONE (01:10)
[2017-12-17] MEDS ORDERED: LORazepam 2 mg/ml vial ONE (01:12)
[2017-12-17] MEDS: dexmedetomidin/NS 400mcg/100ml 100 ML IV SCH ×4 (01:46→18:37)
[2017-12-17 02:10] LABS: ALANINE AMINOTRANSFERASE 24 U/L (12-78); ALBUMIN 2.3 G/DL (3.4-5.0); ALBUMIN/GLOBULIN RATIO 0.5 (1.1-1.5); ALKALINE PHOSPHATASE 51 IU/L (46-116); ANION GAP 9 (8-16); ASPARTATE AMINO TRANSFERASE 38 U/L (10-37); BILIRUBIN,TOTAL 1.4 MG/DL (0.1-1.0); BLOOD UREA NITROGEN 21 MG/DL (7-18); BUN/CREATININE RATIO 17.4 (5.4-32.0); CALCIUM 8.6 MG/DL (8.5-10.1); CHLORIDE 109 MMOL/L (99-107); CREATININE 1.21 MG/DL (0.60-1.10); GLUCOSE 113 MG/DL (70-104); MAGNESIUM 1.3 MG/DL (1.5-2.4); PHOSPHORUS 3.5 MG/DL (2.3-4.5); POTASSIUM 3.7 MMOL/L (3.5-5.1); PREALBUMIN 11.3 MG/DL (19-36); SODIUM 146 MMOL/L (135-145); TOTAL CARBON DIOXIDE 28.1 MMOL/L (24-32); TOTAL PROTEIN 6.7 G/DL (6.4-8.2); eGFR 63 ML/MIN
[2017-12-17 02:11] LABS: BASOPHILS # (AUTO) 0.1 X10'3 (0-0.2); MONOCYTES # (AUTO) 0.4 X10'3 (0-0.9)
[2017-12-17 02:12] LABS: BASOPHILS % (AUTO) 0.8 % (0-1); EOSINOPHILS # (AUTO) 0.1 X10'3 (0-0.9); HEMATOCRIT 45.6 % (42.0-52.0); HEMOGLOBIN 15.1 g/dl (14.0-17.9); LYMPHOCYTES # (AUTO) 1.6 X10'3 (1.1-4.8); LYMPHOCYTES % (AUTO) 21.3 % (21-51); MEAN CORPUSCULAR HEMOGLOBIN 31.5 PG (27.0-31.0); MEAN CORPUSCULAR HGB CONC 33.2 % (33.0-36.5); MEAN CORPUSCULAR VOLUME 94.9 FL (78-98); NEUTROPHILS # (AUTO) 5.2 X10'3 (1.8-7.7); NEUTROPHILS % (AUTO) 70.8 % (42-75); PLATELET COUNT 127 X10'3 (140-440); RED CELL DISTRIBUTION WIDTH 14.3 % (11.5-14.5)
[2017-12-17 02:13] LABS: EOSINOPHILS % (AUTO) 1.4 % (0-6); MEAN PLATELET VOLUME 9.5 FL (7.4-10.4); MONOCYTES % (AUTO) 5.7 % (2-12); RED BLOOD COUNT 4.81 X10'6 (4.70-6.10); WHITE BLOOD COUNT 7.4 X10'3 (4.5-11.0)
[2017-12-17] MEDS: magnesium 1gm/100ml D5W IVPB 100 ML IV PRN (03:03)
[2017-12-17] MEDS: mineral oil/petrolatum ophthal oint EACHEYE SCH ×3 (08:00→20:00)
[2017-12-17] MEDS: pantoprazole 40 MG vial IV SCH (08:07)
[2017-12-17] MEDS: piperacillin/tazo 3.375gm/50ml 50 ML IV SCH ×2 (08:10→15:22)
[2017-12-17] MEDS: K, MAG and/or Phos replacement - Verify level? MC SCH (08:22)
[2017-12-17] MEDS: aspirin 81mg tab.chew PEG SCH (11:26)
[2017-12-17] MEDS: olanzapine 10mg tablet PEG SCH (11:26)
[2017-12-17] MEDS: labetalol 100mg tablet PEG SCH ×3 (11:26→20:11)
[2017-12-17] MEDS: carVEDilol 12.5mg tablet PEG SCH ×2 (11:26→20:11)
[2017-12-17] MEDS: midazolam 100mg in NS 100ml 100 ML IV SCH (12:25)
[2017-12-17] MEDS: hydrALAZINE 20mg/ml inj. IV PRN (21:25)
[2017-12-18] VITALS (23 sets, daily range): BP systolic 134–184; BP diastolic 65–102
[2017-12-18] MEDS: piperacillin/tazo 3.375gm/50ml 50 ML IV SCH ×4 (00:31→23:43)
[2017-12-18] MEDS ORDERED: LORazepam 2 mg/ml vial IV ONE (00:55)
[2017-12-18] MEDS: dexmedetomidin/NS 400mcg/100ml 100 ML IV SCH ×2 (01:32→08:45)
[2017-12-18] MEDS: mineral oil/petrolatum ophthal oint EACHEYE SCH ×3 (02:00→13:26)
[2017-12-18 03:06] LABS: BASOPHILS % (AUTO) 0.4 % (0-1); EOSINOPHILS # (AUTO) 0.2 X10'3 (0-0.9); EOSINOPHILS % (AUTO) 2.7 % (0-6); HEMATOCRIT 43.8 % (42.0-52.0); HEMOGLOBIN 14.8 g/dl (14.0-17.9); LYMPHOCYTES # (AUTO) 1.5 X10'3 (1.1-4.8); LYMPHOCYTES % (AUTO) 18.7 % (21-51); MEAN CORPUSCULAR HEMOGLOBIN 31.7 PG (27.0-31.0); MEAN CORPUSCULAR HGB CONC 33.8 % (33.0-36.5); MEAN CORPUSCULAR VOLUME 93.7 FL (78-98); MEAN PLATELET VOLUME 9.9 FL (7.4-10.4); MONOCYTES # (AUTO) 0.5 X10'3 (0-0.9); NEUTROPHILS # (AUTO) 5.7 X10'3 (1.8-7.7); NEUTROPHILS % (AUTO) 72.2 % (42-75); PLATELET COUNT 127 X10'3 (140-440); RED BLOOD COUNT 4.68 X10'6 (4.70-6.10); RED CELL DISTRIBUTION WIDTH 13.8 % (11.5-14.5); WHITE BLOOD COUNT 7.9 X10'3 (4.5-11.0)
[2017-12-18 03:11] LABS: ALANINE AMINOTRANSFERASE 23 U/L (12-78); ALBUMIN 2.4 G/DL (3.4-5.0); ALBUMIN/GLOBULIN RATIO 0.5 (1.1-1.5); ALKALINE PHOSPHATASE 53 IU/L (46-116); ANION GAP 8 (8-16); ASPARTATE AMINO TRANSFERASE 34 U/L (10-37); BILIRUBIN,TOTAL 1.5 MG/DL (0.1-1.0); BLOOD UREA NITROGEN 15 MG/DL (7-18); BUN/CREATININE RATIO 14.9 (5.4-32.0); CALCIUM 8.4 MG/DL (8.5-10.1); CHLORIDE 104 MMOL/L (99-107); CREATININE 1.01 MG/DL (0.60-1.10); GLUCOSE 97 MG/DL (70-104); MAGNESIUM 1.5 MG/DL (1.5-2.4); PHOSPHORUS 2.7 MG/DL (2.3-4.5); POTASSIUM 3.3 MMOL/L (3.5-5.1); SODIUM 142 MMOL/L (135-145); TOTAL CARBON DIOXIDE 29.8 MMOL/L (24-32); TOTAL PROTEIN 6.9 G/DL (6.4-8.2); eGFR 77 ML/MIN
[2017-12-18] MEDS: hydrALAZINE 20mg/ml inj. IV PRN ×2 (04:22→21:43)
[2017-12-18] MEDS: labetalol 100mg tablet PEG SCH ×3 (07:20→21:03)
[2017-12-18] MEDS: carVEDilol 12.5mg tablet PEG SCH ×2 (07:21→19:49)
[2017-12-18] MEDS: olanzapine 10mg tablet PEG SCH (07:21)
[2017-12-18] MEDS: aspirin 81mg tab.chew PEG SCH (07:21)
[2017-12-18] MEDS: pantoprazole 40 MG vial IV SCH (07:21)
[2017-12-18] MEDS: K, MAG and/or Phos replacement - Verify level? MC SCH (08:00)
[2017-12-18] MEDS ORDERED: dextrose 50%-water 50ml dispensing syringe IV ONE (17:33)
[2017-12-19] VITALS (26 sets, daily range): BP systolic 143–200; BP diastolic 78–114
[2017-12-19] MEDS: acetaminophen 325mg tablet PEG PRN ×2 (04:10→13:50)
[2017-12-19] MEDS: hydrALAZINE 20mg/ml inj. IV PRN ×2 (04:31→12:12)
[2017-12-19] MEDS: carVEDilol 12.5mg tablet PEG SCH (05:35)
[2017-12-19] MEDS: labetalol 100mg tablet PEG SCH ×3 (05:35→21:55)
[2017-12-19] MEDS: pantoprazole 40 MG vial IV SCH (07:39)
[2017-12-19] MEDS: piperacillin/tazo 3.375gm/50ml 50 ML IV SCH (07:39)
[2017-12-19] MEDS: olanzapine 10mg tablet PEG SCH (07:39)
[2017-12-19] MEDS: aspirin 81mg tab.chew PEG SCH (07:40)
[2017-12-19] MEDS: K, MAG and/or Phos replacement - Verify level? MC SCH (08:00)
[2017-12-19 09:08] LABS: BASOPHILS % (AUTO) 0.5 % (0-1); EOSINOPHILS # (AUTO) 0.2 X10'3 (0-0.9); EOSINOPHILS % (AUTO) 1.9 % (0-6); HEMATOCRIT 46.3 % (42.0-52.0); HEMOGLOBIN 15.7 g/dl (14.0-17.9); LYMPHOCYTES # (AUTO) 1.3 X10'3 (1.1-4.8); MEAN CORPUSCULAR HEMOGLOBIN 31.4 PG (27.0-31.0); MEAN CORPUSCULAR HGB CONC 33.8 % (33.0-36.5); MEAN CORPUSCULAR VOLUME 92.7 FL (78-98); MEAN PLATELET VOLUME 9.8 FL (7.4-10.4); MONOCYTES # (AUTO) 0.4 X10'3 (0-0.9); MONOCYTES % (AUTO) 4.3 % (2-12); NEUTROPHILS # (AUTO) 6.6 X10'3 (1.8-7.7); NEUTROPHILS % (AUTO) 78.3 % (42-75); PLATELET COUNT 143 X10'3 (140-440); RED CELL DISTRIBUTION WIDTH 14.3 % (11.5-14.5); WHITE BLOOD COUNT 8.5 X10'3 (4.5-11.0)
[2017-12-19 09:22] LABS: ALANINE AMINOTRANSFERASE 30 U/L (12-78); ALBUMIN 2.7 G/DL (3.4-5.0); ALBUMIN/GLOBULIN RATIO 0.6 (1.1-1.5); ALKALINE PHOSPHATASE 61 IU/L (46-116); ANION GAP 9 (8-16); ASPARTATE AMINO TRANSFERASE 37 U/L (10-37); BILIRUBIN,TOTAL 1.4 MG/DL (0.1-1.0); BLOOD UREA NITROGEN 14 MG/DL (7-18); BUN/CREATININE RATIO 14.6 (5.4-32.0); CALCIUM 8.6 MG/DL (8.5-10.1); CHLORIDE 102 MMOL/L (99-107); CREATININE 0.96 MG/DL (0.60-1.10); GLUCOSE 148 MG/DL (70-104); MAGNESIUM 1.5 MG/DL (1.5-2.4); PHOSPHORUS 2.3 MG/DL (2.3-4.5); POTASSIUM 3.2 MMOL/L (3.5-5.1); SODIUM 140 MMOL/L (135-145); TOTAL PROTEIN 7.6 G/DL (6.4-8.2); eGFR 82 ML/MIN
[2017-12-19] MEDS ORDERED: lisinopril 20mg tablet PO SCH (09:26)
[2017-12-19] MEDS: potassium Cl oral solution 20 MEQ/15 ML PO PRN ×3 (10:06→17:18)
[2017-12-19] MEDS ORDERED: carVEDilol 12.5mg tablet PO ONE (14:05)
[2017-12-19] MEDS: labetalol inj. 200 MG in normal saline 250ml IV soln 210 ML IV SCH ×5 (14:40→21:20)
[2017-12-19] MEDS ORDERED: morphine 2 MG/ML inj. syringe IV ONE (14:55)
[2017-12-19] MEDS ORDERED: morphine 2 MG/ML inj. syringe ONE (15:01)
[2017-12-19] MEDS: amoxicillin/clavulanate potass. 1000/62.5mg TAB.SR.12h PO SCH (17:16)
[2017-12-19] MEDS ORDERED: HYDROcodone/acetaminophen 5mg/325mg tablet PO PRN (19:50)
[2017-12-19] MEDS: carVEDilol 12.5mg tablet PO SCH (20:06)
[2017-12-19] MEDS: esmolol/sodium cl bag 250 ML IV SCH (21:31)
[2017-12-20] VITALS (19 sets, daily range): BP systolic 113–187; BP diastolic 63–122
[2017-12-20] MEDS: esmolol/sodium cl bag 250 ML IV SCH ×3 (05:12→12:32)
[2017-12-20 05:39] LABS: ALANINE AMINOTRANSFERASE 30 U/L (12-78); ALBUMIN 2.7 G/DL (3.4-5.0); ALBUMIN/GLOBULIN RATIO 0.6 (1.1-1.5); ALKALINE PHOSPHATASE 58 IU/L (46-116); ANION GAP 11 (8-16); ASPARTATE AMINO TRANSFERASE 33 U/L (10-37); BILIRUBIN,TOTAL 0.9 MG/DL (0.1-1.0); BLOOD UREA NITROGEN 14 MG/DL (7-18); BUN/CREATININE RATIO 16.3 (5.4-32.0); CALCIUM 8.6 MG/DL (8.5-10.1); CHLORIDE 106 MMOL/L (99-107); CREATININE 0.86 MG/DL (0.60-1.10); GLUCOSE 97 MG/DL (70-104); MAGNESIUM 1.5 MG/DL (1.5-2.4); PHOSPHORUS 2.9 MG/DL (2.3-4.5); POTASSIUM 3.6 MMOL/L (3.5-5.1); SODIUM 141 MMOL/L (135-145); TOTAL CARBON DIOXIDE 24.2 MMOL/L (24-32); TOTAL PROTEIN 7.5 G/DL (6.4-8.2); eGFR > 90 ML/MIN
[2017-12-20 05:54] LABS: BASOPHILS % (AUTO) 0.5 % (0-1); EOSINOPHILS # (AUTO) 0.1 X10'3 (0-0.9); HEMATOCRIT 43.5 % (42.0-52.0); HEMOGLOBIN 14.9 g/dl (14.0-17.9); LYMPHOCYTES % (AUTO) 27.4 % (21-51); MEAN CORPUSCULAR HEMOGLOBIN 32.2 PG (27.0-31.0); MEAN CORPUSCULAR HGB CONC 34.3 % (33.0-36.5); MEAN CORPUSCULAR VOLUME 93.8 FL (78-98); MEAN PLATELET VOLUME 9.9 FL (7.4-10.4); MONOCYTES # (AUTO) 0.6 X10'3 (0-0.9); MONOCYTES % (AUTO) 8.2 % (2-12); NEUTROPHILS # (AUTO) 4.4 X10'3 (1.8-7.7); NEUTROPHILS % (AUTO) 61.9 % (42-75); PLATELET COUNT 155 X10'3 (140-440); RED BLOOD COUNT 4.64 X10'6 (4.70-6.10); RED CELL DISTRIBUTION WIDTH 14.4 % (11.5-14.5); WHITE BLOOD COUNT 7.1 X10'3 (4.5-11.0)
[2017-12-20] MEDS: carVEDilol 12.5mg tablet PO SCH (07:29)
[2017-12-20] MEDS: olanzapine 10mg tablet PEG SCH (07:29)
[2017-12-20] MEDS: labetalol 100mg tablet PEG SCH (07:29)
[2017-12-20] MEDS: pantoprazole 40 MG vial IV SCH (07:30)
[2017-12-20] MEDS ORDERED: lisinopril 20mg tablet PO SCH (08:00)
[2017-12-20] MEDS ORDERED: labetalol 100mg tablet PO ONE (08:15)
[2017-12-20] MEDS ORDERED: lisinopril 10 MG tablet PO ONE (08:15)
[2017-12-20] MEDS ORDERED: spironolactone 25 MG tablet PO SCH (08:30)
[2017-12-20] MEDS: amoxicillin/clavulanate potass. 1000/62.5mg TAB.SR.12h PO SCH ×2 (08:34→17:45)
[2017-12-20] MEDS: aspirin 81mg tab.chew PEG SCH (08:35)
[2017-12-20] MEDS: K, MAG and/or Phos replacement - Verify level? MC SCH (08:48)
[2017-12-20] MEDS ORDERED: vancomycin/NS 1 GM ADD-VANTAGE 250 ML IV ONE (12:15)
[2017-12-20] MEDS ORDERED: LORazepam 1 MG tablet PO PRN (17:05)
[2017-12-20] MEDS ORDERED: labetalol 100mg tablet PEG SCH (20:00)
[2017-12-20] MEDS ORDERED: lactobacillus rhamnosus 10,000 MMU CELLS/CAPSULE PO SCH (20:00)
[2017-12-21] MEDS ORDERED: furosemide 40mg tablet PO SCH (08:00)
[2017-12-21] MEDS ORDERED: lisinopril 20mg tablet PO SCH (08:00)
== END 2017-12-20 18:50 | disposition left against medical advice (07) | DRG 207 ==
LOC: ER 16:36 → CICU 2S 21:51 → CMPBEDREQ 12-14 19:23 → ICU 2S 12-18 18:01
PROVIDERS: ADMIT Internal Medicine Critical Care Medicine; ATTEND Internal Medicine Critical Care Medicine
PROC: 5A1955Z Respiratory Ventilation, Greater than 96 Consecutive Hours (ICD-10-PCS; principal; 2017-12-10)
PROC: 0BH17EZ Insertion of Endotracheal Airway into Trachea, Via Natural or Artificial Opening (ICD-10-PCS; 2017-12-10)
PROC: 02HV33Z Insertion of Infusion Device into Superior Vena Cava, Percutaneous Approach (ICD-10-PCS; 2017-12-10)
DX: J96.00 Acute respiratory failure, unspecified whether with hypoxia or hypercapnia (principal); N17.9 Acute kidney failure, unspecified; E87.0 Hyperosmolality and hypernatremia; F41.9 Anxiety disorder, unspecified; I11.0 Hypertensive heart disease with heart failure; I25.10 Atherosclerotic heart disease of native coronary artery without angina pectoris; M54.5 Low back pain; R74.8 Abnormal levels of other serum enzymes; M25.511 Pain in right shoulder; J32.9 Chronic sinusitis, unspecified; I48.91 Unspecified atrial fibrillation; F15.10 Other stimulant abuse, uncomplicated; E86.0 Dehydration; Z53.21 Procedure and treatment not carried out due to patient leaving prior to being seen by health care provider; I50.9 Heart failure, unspecified; I25.2 Old myocardial infarction; Z95.0 Presence of cardiac pacemaker; Z79.82 Long term (current) use of aspirin; Z79.899 Other long term (current) drug therapy; Z79.01 Long term (current) use of anticoagulants; Z86.711 Personal history of pulmonary embolism; Z83.3 Family history of diabetes mellitus; Z82.49 Family history of ischemic heart disease and other diseases of the circulatory system
CPT/HCPCS: 36415; 36556; 36600; 70486; 71045; 74176; 80053; 80305; 81001; 82803; 82948; 83690; 83735; 83880; 84100; 84134; 84484; 85018; 85025; 85610; 87070; 87075; 87076; 87077; 87102; 87186; 93005; 94002; 94003; 94660; 94760; 97110; 97116; 97162; 97530; 99291; A6213; C1751; C1758; C9113; J0360; J2060; J2250; J2270; J2543; J2704; J3475; J3480; J3490; J7030

== ENCOUNTER 2020-01-23 11:24 | Inpatient (IN) | payer MEDICARE ==
[~2020-01-23] VITALS: Ht 172.7 cm; Wt 71.3 kg
[~2020-01-23 11:24] MED LIST changes: +ASPI-611 PO; -ASPI81TA52 PO; +LABE100T5 PO
[2020-01-23] MEDS ORDERED: normal saline 1000ML IV soln IV ONE ×2 (11:30→13:50)
[2020-01-23] MEDS ORDERED: piperacillin/tazo 3.375gm/50ml 50 ML IV ONE (11:30)
[2020-01-23 11:51] LABS: BASOPHILS % (AUTO) 0.1 % (0-1); EOSINOPHILS % (AUTO) 0 % (0-6); HEMATOCRIT 38.8 % (42.0-52.0); HEMOGLOBIN 12.1 g/dl (14.0-17.9); LYMPHOCYTES # (AUTO) 0.2 X10'3 (1.1-4.8); LYMPHOCYTES % (AUTO) 1.8 % (21-51); MEAN CORPUSCULAR HEMOGLOBIN 26.9 PG (27.0-31.0); MEAN CORPUSCULAR HGB CONC 31.3 g/dL (33.0-36.5); MEAN PLATELET VOLUME 8.3 FL (7.4-10.4); MONOCYTES # (AUTO) 0.1 X10'3 (0-0.9); NEUTROPHILS # (AUTO) 12.7 X10'3 (1.8-7.7); NEUTROPHILS % (AUTO) 97.1 % (42-75); PLATELET COUNT 140 X10'3 (140-440); RED BLOOD COUNT 4.51 X10'6 (4.70-6.10); RED CELL DISTRIBUTION WIDTH 21.9 % (11.5-14.5); WHITE BLOOD COUNT 13.1 X10'3 (4.5-11.0)
[2020-01-23 12:06] LABS: ABG HCO3 12.7 mmol/L (22.0-26.0); ABG OXYGEN SATURATION 88.5 % (94-97); ABG PCO2 (T) 36.3 mmHg (35.0-48.0); ABG PO2 (T) 67.1 mmHg (75.0-100.0); ALLEN'S TEST POSITIVE; FLOW 4 L/min; FMetHb 0.2 % (0.0-1.5); FO2Hb 87.4 % (94-97); TOTAL HEMOGLOBIN 12.4 G/dl (14.0-18.0)
[2020-01-23 12:13] LABS: ALANINE AMINOTRANSFERASE 87 U/L (12-78); ALBUMIN 2.8 G/DL (3.4-5.0); ALBUMIN/GLOBULIN RATIO 0.7 (1.1-1.5); ALKALINE PHOSPHATASE 55 IU/L (46-116); ANION GAP 17 (8-16); ASPARTATE AMINO TRANSFERASE 139 U/L (10-37); BILIRUBIN,TOTAL 1.9 MG/DL (0.1-1.0); BLOOD UREA NITROGEN 43 MG/DL (7-18); BUN/CREATININE RATIO 11.2 (5.4-32.0); CALCIUM 7.7 MG/DL (8.5-10.1); CHLORIDE 101 MMOL/L (99-107); CREATININE 3.83 MG/DL (0.60-1.10); GLUCOSE 100 MG/DL (70-104); MAGNESIUM 1.4 MG/DL (1.5-2.4); POTASSIUM 4.6 MMOL/L (3.5-5.1); SODIUM 135 MMOL/L (135-145); TOTAL CARBON DIOXIDE 16.8 MMOL/L (24-32); TOTAL PROTEIN 7.1 G/DL (6.4-8.2); eGFR 16 ML/MIN
[2020-01-23] MEDS ORDERED: dextrose 50%-water 50ml dispensing syringe IV ONE ×2 (12:45→15:55)
[2020-01-23] MEDS ORDERED: furosemide 10 MG/1 ML 10ml inj IV ONE (12:50)
--- NOTE | 2020-01-23 12:50 | NUR ---
suggested a drip with dextrose to the MD. Normal saline is all that is ordered for now. pt's sugar is not stable
[2020-01-23 13:40] LABS: CLARITY,URINE TURBID (Clear); COLOR,URINE YELLOW (Yellow); GLUCOSE, URINE NEGATIVE (Neg); KETONES,URINE TRACE mg/dl (Neg); LEUKOCYTE ESTERASE ,URINE NEGATIVE (Neg); NITRITES, URINE NEGATIVE (Neg); OCCULT BLOOD,URINE TRACE-INTACT (Neg); PH,URINE 5.5 (4.8-8.0); PROTEIN,URINE >=300 mg/dl (Neg)
[2020-01-23] MEDS ORDERED: normal saline 1000ml 1,000 ML IV ONE ×3 (13:40→13:55)
[2020-01-23 13:42] LABS: UA COLLECTION TYPE FOLEY CATH
[2020-01-23 13:58] LABS: HYALINE CASTS 0-3 /LPF (NEGATIVE); MUCUS STRANDS FEW /LPF (Neg); SQUAMOUS EPITHELIAL CELL,UR FEW /LPF (FEW)
[2020-01-23 13:59] LABS: TRANSITIONAL EPI CELLS,URINE FEW /HPF
[2020-01-23 14:00] LABS: CKMB RELATIVE INDEX 1.6 RATIO (0-2.5); CREATINE KINASE 624 U/L (39-308)
[2020-01-23 14:00] LABS: AMORPHOUS URATES 4+
[2020-01-23 14:01] LABS: CAL OXALATE CRYSTALS 2+ /HPF (NEGATIVE)
[2020-01-23 14:02] LABS: BACTERIA,URINE NONE SEEN /HPF (Neg); RENAL CELLS, URINE MODERATE /HPF; WBC,URINE 0-4 /HPF (0-4)
[2020-01-23] MEDS ORDERED: APIX5TAB3 PO (14:39)
[2020-01-23] MEDS ORDERED: CARV-50 PO (14:39)
[2020-01-23] MEDS ORDERED: POTA8CAP20 PO (14:39)
[2020-01-23] MEDS ORDERED: LISI-600 PO (14:39)
[2020-01-23] MEDS ORDERED: AMIO200T61 PO (14:39)
[2020-01-23] MEDS ORDERED: FURO40TA4 PO (14:39)
[2020-01-23] MEDS ORDERED: vancomycin inj. 750 MG in normal saline 250ml IV soln 250 ML IV SCH (15:00)
[2020-01-23] MEDS ORDERED: vancomycin/NS 1 GM ADD-VANTAGE 250 ML IV ONE (15:10)
[2020-01-23 15:12] LABS: TOTAL CELLS COUNTED 100
[2020-01-23 15:13] LABS: ANISOCYTOSIS 3+; HYPOCHROMASIA 1+; PLATELET ESTIMATE NORMAL; POIKILOCYTOSIS 2+; POLYCHROMASIA 1+
[2020-01-23 15:14] LABS: BURR CELLS 1+; ELLIPTOCYTES 2+; SCHISTOCYTES 1+; SPHEROCYTES FEW; TOXIC GRANULATION 1+
[2020-01-23] MEDS ORDERED: vancomycin/NS 1 GM ADD-VANTAGE 250 ML X 1 DOSE IV PRN (15:15)
--- NOTE | 2020-01-23 15:55 | NUR ---
pt's sugar has again dropped. waiting on admission orders. but put in another order for D50 in 50ml as per previous order by MD Spence. spoke with Charge nurse Hayley about this.
--- NOTE | 2020-01-23 16:08 | NUR ---
paging MD Carlos for orders.
[2020-01-23] MEDS ORDERED: magnesium 4gm in 100ml NS 100 ML IV PRN ×2 (16:20→16:25)
[2020-01-23] MEDS ORDERED: potassium Cl 20 mEq SR tablet PO PRN ×4 (16:20→16:25)
[2020-01-23] MEDS ORDERED: magnesium 2GM in 50ml NS 50 ML IV PRN ×2 (16:20→16:25)
[2020-01-23] MEDS: K, MAG and/or Phos replacement - Verify level? MC SCH (16:20)
[2020-01-23] MEDS ORDERED: sodium phosphate inj. 30 MMOL in dextrose 5%-water 250 ML IV PRN ×2 (16:20→16:25)
[2020-01-23] MEDS ORDERED: magnesium Cl slow-release 64mg tablet PO PRN ×2 (16:20→16:25)
[2020-01-23] MEDS ORDERED: Neutra Phos packet PO PRN ×2 (16:20→16:25)
[2020-01-23] MEDS ORDERED: sodium phosphate inj. 15 MMOL in dextrose 5%-water 250 ML IV PRN ×2 (16:20→16:25)
[2020-01-23] MEDS ORDERED: K, MAG and/or Phos replacement - Verify level? MC SCH (16:25)
[2020-01-23] MEDS ORDERED: enoxaparin 40mg/0.4ml syringe SUBCUT SCH (16:25)
[2020-01-23] MEDS ORDERED: ondansetron/PF 4mg/2ml inj IV PRN (16:25)
[2020-01-23] MEDS ORDERED: magnesium hydroxide 30ml (MOM) UD suspension PO PRN (16:25)
[2020-01-23 16:55] LABS: PLATELET COUNT 131 X10'3 (140-440)
[2020-01-23] MEDS: Dextrose 10%-water IV solution 1,000 ML IV SCH (16:57)
[2020-01-23] MEDS: pantoprazole 40 MG vial IV SCH (16:58)
[2020-01-23 17:26] LABS: MAGNESIUM 1.5 MG/DL (1.5-2.4); PHOSPHORUS 5.5 MG/DL (2.3-4.5); POTASSIUM 4.6 MMOL/L (3.5-5.1)
--- NOTE | 2020-01-23 17:37 | NUR ---
Patient arrived to PCU 3024A. Transferred to hospital bed with assistance from staff. Oriented to room and to call light. VS: T 99.9 axillary HR 105, RR 24, 02 97% 5L NC, BP 142/85. Pain /10. Central line flushed and IVF started. All immediate needs met a time. Will continue to monitor.
[2020-01-23 18:00] VITALS: BP 142/85
--- NOTE | 2020-01-23 18:00 | NUR ---
Patient in room PCU 3024. I have received report from Sara ZHOU and had the opportunity to ask questions and assume patient care.
[2020-01-23] MEDS ORDERED: dextrose ORAL solution 15 GM/59 ML bottle PO PRN ×2 (18:10)
[2020-01-23] MEDS ORDERED: dextrose 50%-water 50ml dispensing syringe IV PRN ×2 (18:10)
[2020-01-23] MEDS ORDERED: glucagon, human recombinant 1mg kit SUBCUT PRN (18:10)
[2020-01-23 18:19] LABS: D-DIMER 23.95 MG/L FEU (0-0.50); PARTIAL THROMBOPLASTIN TIME 42 SECONDS (22-32)
--- NOTE | 2020-01-23 18:21 | NUR ---
Patient blood glucose 65. New orders from Dr. Mobley for hypoglycemia managment. D10 W at 100 mL/hour.
--- NOTE | 2020-01-23 18:35 | NUR ---
Problems reprioritized. Patient report given, questions answered & plan of care reviewed with WINNIE Sánchez. Patient stable at transfer of care.
[2020-01-23] MEDS: apixaban 5mg tablet PO SCH (20:00)
[2020-01-23] MEDS: clindamycin 600mg/D5W 50ml 50 ML IV SCH (20:38)
[2020-01-23 20:56] LABS: MAGNESIUM 1.5 MG/DL (1.5-2.4); PHOSPHORUS 5.5 MG/DL (2.3-4.5); POTASSIUM 4.8 MMOL/L (3.5-5.1)
[2020-01-23 22:00] VITALS: BP 114/76
[2020-01-24] VITALS (22 sets, daily range): BP systolic 84–131; BP diastolic 47–76
[2020-01-24] MEDS ORDERED: morphine 4 MG/ML inj SYRINge IV PRN (00:05)
[2020-01-24 00:56] LABS: TOTAL PROTEIN,URINE RANDOM 264.4 MG/DL
[2020-01-24] MEDS ORDERED: albuterol 2.5 MG/3 ML nebule NEB STA (01:14)
--- NOTE | 2020-01-24 01:44 | NUR ---
Problems reprioritized. Patient report given, questions answered & plan of care reviewed with Britt Mathew RN.
[2020-01-24 01:48] LABS: PARTIAL THROMBOPLASTIN TIME 45 SECONDS (22-32)
[2020-01-24 01:50] LABS: ALANINE AMINOTRANSFERASE 115 U/L (12-78); ALBUMIN 2.6 G/DL (3.4-5.0); ALBUMIN/GLOBULIN RATIO 0.6 (1.1-1.5); ALKALINE PHOSPHATASE 41 IU/L (46-116); ANION GAP 8 (8-16); ASPARTATE AMINO TRANSFERASE 207 U/L (10-37); BILIRUBIN,TOTAL 1.6 MG/DL (0.1-1.0); BLOOD UREA NITROGEN 50 MG/DL (7-18); CALCIUM 6.8 MG/DL (8.5-10.1); CHLORIDE 101 MMOL/L (99-107); CREATININE 4.17 MG/DL (0.60-1.10); GLUCOSE 91 MG/DL (70-104); POTASSIUM 4.8 MMOL/L (3.5-5.1); SODIUM 130 MMOL/L (135-145); TOTAL CARBON DIOXIDE 21.5 MMOL/L (24-32); TOTAL PROTEIN 6.8 G/DL (6.4-8.2); eGFR 15 ML/MIN
[2020-01-24 01:56] LABS: ABG BASE EXCESS -10.1 mmol/L (-2.0-2.0); ABG HCO3 17.3 mmol/L (22.0-26.0); ABG OXYGEN SATURATION 98.9 % (94-97); ABG PCO2 (T) 44.4 mmHg (35.0-48.0); ABG PO2 (T) 155.3 mmHg (75.0-100.0); ALLEN'S TEST POSITIVE; FLOW 15 L/min; FMetHb 0.3 % (0.0-1.5); FO2Hb 97.6 % (94-97); PATIENT TEMPERATURE 37.3; TOTAL HEMOGLOBIN 12.7 G/dl (14.0-18.0)
[2020-01-24 01:56] LABS: MAGNESIUM 1.5 MG/DL (1.5-2.4); PHOSPHORUS 5.6 MG/DL (2.3-4.5); TROPONIN I 0.38 NG/ML (0.0-0.05)
[2020-01-24 02:04] LABS: BASOPHILS % (AUTO) 0.3 % (0-1); EOSINOPHILS % (AUTO) 0.3 % (0-6); HEMATOCRIT 36.7 % (42.0-52.0); HEMOGLOBIN 11.5 g/dl (14.0-17.9); LYMPHOCYTES # (AUTO) 0.3 X10'3 (1.1-4.8); LYMPHOCYTES % (AUTO) 2.1 % (21-51); MEAN CORPUSCULAR HEMOGLOBIN 26.7 PG (27.0-31.0); MEAN CORPUSCULAR HGB CONC 31.2 g/dL (33.0-36.5); MEAN CORPUSCULAR VOLUME 85.6 FL (78-98); MEAN PLATELET VOLUME 8.6 FL (7.4-10.4); MONOCYTES # (AUTO) 0.4 X10'3 (0-0.9); MONOCYTES % (AUTO) 3.1 % (2-12); NEUTROPHILS # (AUTO) 13.1 X10'3 (1.8-7.7); NEUTROPHILS % (AUTO) 94.2 % (42-75); PLATELET COUNT 115 X10'3 (140-440); RED BLOOD COUNT 4.29 X10'6 (4.70-6.10); RED CELL DISTRIBUTION WIDTH 22.4 % (11.5-14.5); WHITE BLOOD COUNT 13.9 X10'3 (4.5-11.0)
[2020-01-24] MEDS ORDERED: acetaminophen 1,000mg/100ml IV 100 ML IV ONE (02:35)
[2020-01-24] MEDS: Dextrose 10%-water IV solution 1,000 ML IV SCH ×2 (02:51→13:38)
[2020-01-24 03:16] LABS: ABG BASE EXCESS -8.4 mmol/L (-2.0-2.0); ABG HCO3 19.2 mmol/L (22.0-26.0); ABG OXYGEN SATURATION 99.8 % (94-97); ABG PCO2 (T) 49.7 mmHg (35.0-48.0); ABG PO2 (T) 361.4 mmHg (75.0-100.0); ALLEN'S TEST POSITIVE; FCOHb 0.4 % (0.0-3.9); FMetHb 0.2 % (0.0-1.5); FO2Hb 99.2 % (94-97); PATIENT TEMPERATURE 37.9; TOTAL HEMOGLOBIN 12.5 G/dl (14.0-18.0)
[2020-01-24] MEDS ORDERED: midazolam 2 mg/2 ml injection ONE (03:17)
[2020-01-24] MEDS ORDERED: NORepinephrine 8mg/ 250ml NS 250 ML IV ONE (03:22)
[2020-01-24] MEDS ORDERED: midazolam 2 mg/2 ml injection IV ONE (03:35)
[2020-01-24] MEDS ORDERED: ipratropium/albuterol 3ml nebule NEB PRN (03:35)
[2020-01-24] MEDS ORDERED: fentaNYL/PF 50MCG/1 ML 2ML syringe IV PRN (03:35)
[2020-01-24] MEDS ORDERED: VANCOMYCIN LEVEL IV SCH (04:00)
[2020-01-24 04:11] LABS: ABG BASE EXCESS -10.3 mmol/L (-2.0-2.0); ABG HCO3 17.9 mmol/L (22.0-26.0); ABG OXYGEN SATURATION 96.6 % (94-97); ABG PCO2 (T) 51.6 mmHg (35.0-48.0); ABG PO2 (T) 106.6 mmHg (75.0-100.0); ALLEN'S TEST POSITIVE; FCOHb 0.1 % (0.0-3.9); FMetHb 0.3 % (0.0-1.5); FO2Hb 96.2 % (94-97); PATIENT TEMPERATURE 38.1; PEEP 5 cm H2O; RESPIRATORY RATE 16 b/min; TIDAL VOLUME 450 mL; TOTAL HEMOGLOBIN 12.3 G/dl (14.0-18.0)
[2020-01-24] MEDS: midazolam 100mg in NS 100ml 100 ML IV PRN ×2 (04:22→16:38)
[2020-01-24] MEDS: FENTANYL-0.9 % NACL/PF 100 ML IV PRN (04:22)
[2020-01-24] MEDS: NORepinephrine 8mg/ 250ml NS 250 ML IV SCH ×6 (04:23→23:00)
--- NOTE | 2020-01-24 05:01 | NUR ---
[id number] Received report and assumed care of pt. PT transferred form PCU on monitor to room 2011B. Pt placed on monitor Pt is awake does not follow commands, left lower extremity is deep red and swollen, photos obtained, distal pulse is weak and Doppler, rt leg is purple and cool to touch, pt has generalized modeling noted, ABG obtained. spoke to Brooke Rinaldi NP. reviewed ABG, Pt placed on Bipap, repeat ABG obtained, Dr. Sloan at bedside intubated pt. pt has extremely dry mucus membranes unable to place og at this time will attempt later. Levophed drip to keep MAP greater then 65, versed in place for sedation, fentanyl in place for pain control, D10 in place for glucose control. all vasoactive medication via CVL.
--- NOTE | 2020-01-24 06:18 | NUR ---
report given keshav ley rn plan of care reviewed
[2020-01-24] MEDS: clindamycin 600mg/D5W 50ml 50 ML IV SCH ×2 (07:20→20:51)
[2020-01-24] MEDS: pantoprazole 40 MG vial IV SCH (07:20)
[2020-01-24] MEDS: ipratropium/albuterol 3ml nebule NEB SCH ×5 (07:30→22:49)
[2020-01-24 07:43] LABS: NUCLEATED RED BLOOD CELLS 1 /100WBC (0-0); TOTAL CELLS COUNTED 100
[2020-01-24 07:44] LABS: PLATELET ESTIMATE DECREASED
[2020-01-24 07:45] LABS: ANISOCYTOSIS 3+; BURR CELLS 2+; ELLIPTOCYTES 2+; LARGE PLATELETS FEW; POIKILOCYTOSIS 2+; POLYCHROMASIA 1+; SPHEROCYTES FEW; TOXIC GRANULATION 1+
[2020-01-24 07:46] LABS: HYPOCHROMASIA 1+; SCHISTOCYTES 1+; TOXIC VACUOLATION FEW
[2020-01-24] MEDS: amiodarone 200mg tablet PO SCH (07:47)
[2020-01-24] MEDS: apixaban 5mg tablet PO SCH ×2 (07:47→20:51)
[2020-01-24] MEDS: K, MAG and/or Phos replacement - Verify level? MC SCH (08:00)
[2020-01-24] MEDS ORDERED: furosemide 10 MG/1 ML 10ml inj IV ONE (10:35)
[2020-01-24] MEDS ORDERED: vancomycin/NS 1 GM ADD-VANTAGE 250 ML IV ONE (10:35)
[2020-01-24 11:20] LABS: CLARITY,URINE SLIGHTLY CLOUDY (Clear); COLOR,URINE YELLOW (Yellow); GLUCOSE, URINE NEGATIVE (Neg); KETONES,URINE NEGATIVE (Neg); LEUKOCYTE ESTERASE ,URINE NEGATIVE (Neg); NITRITES, URINE NEGATIVE (Neg); OCCULT BLOOD,URINE MODERATE (Neg); PH,URINE 5.5 (4.8-8.0); PROTEIN,URINE 100 mg/dl (Neg); UA COLLECTION TYPE NON-SPECIFIED
[2020-01-24 11:23] LABS: TOTAL PROTEIN,URINE RANDOM 172.6 MG/DL
[2020-01-24 11:29] LABS: HYALINE CASTS 0-3 /LPF (NEGATIVE); MUCUS STRANDS FEW /LPF (Neg); SQUAMOUS EPITHELIAL CELL,UR FEW /LPF (FEW)
[2020-01-24 11:30] LABS: BACTERIA,URINE 2+ /HPF (Neg); CAL OXALATE CRYSTALS FEW /HPF (NEGATIVE); FINE GRANULAR CAST 0-3 /LPF (NEGATIVE)
[2020-01-24 11:31] LABS: RBC,URINE 0-2 /HPF (0-2); WBC,URINE 0-4 /HPF (0-4)
[2020-01-24] MEDS ORDERED: furosemide 40mg/4ml inj ONE (13:24)
--- NOTE | 2020-01-24 14:04 | NUR ---
Initial: Pt brought in after being found in trailer alone for three days, BG 51 when EMS arrived per ED report. Currently receiving routine dextrose. Pt admit with BLE cellulitis and intubated d/t respiratory failure with hypercapnia. Unsuccessful placement in OG tube per RN notes. TF recommendations below for if expected prolonged intubation and to receive nutrition support. LB 01/22. Will continue to follow closely. Recommendations: 1) IF TF, continuous Vital High Protein with goal rate of 80 mL/hr. To begin at 20 mL/hr and advance by 20 mL Q8H to goal rate 2) IF TF, additional water flush per MD given low serum Na 3) IF TF, prealbumin q Thursday/; daily weights 4) PO diet advancement to heart healthy as medically indicated following extubation Addendum: 01/24/20 at [address] Amended: Links added.
[2020-01-24] MEDS: DOBUTamine-DoBUTrex 500mg/D5W 250 ML IV SCH (15:00)
--- NOTE | 2020-01-24 15:44 | NUR ---
Patient in room CICU 2010. I have received report from WINNIE Bro and had the opportunity to ask questions and assume patient care.
--- NOTE | 2020-01-24 18:36 | NUR ---
Patient in room CICU 2010. I have received report from Ruchi ZHOU and had the opportunity to ask questions and assume patient care.
[2020-01-24] MEDS: furosemide 10 MG/1 ML 10ml inj IV SCH (20:51)
[2020-01-24] MEDS: lactobacillus rhamnosus 10,000 MMU CELLS/CAPSULE PO SCH (20:51)
[2020-01-25] VITALS (24 sets, daily range): BP systolic 96–129; BP diastolic 51–83
[2020-01-25] MEDS: FENTANYL-0.9 % NACL/PF 100 ML IV PRN (00:36)
[2020-01-25 02:43] LABS: PARTIAL THROMBOPLASTIN TIME 49 SECONDS (22-32)
[2020-01-25 02:46] LABS: ALANINE AMINOTRANSFERASE 101 U/L (12-78); ALBUMIN/GLOBULIN RATIO 0.5 (1.1-1.5); ALKALINE PHOSPHATASE 47 IU/L (46-116); ANION GAP 8 (8-16); ASPARTATE AMINO TRANSFERASE 134 U/L (10-37); BLOOD UREA NITROGEN 60 MG/DL (7-18); CALCIUM 6.7 MG/DL (8.5-10.1); CHLORIDE 103 MMOL/L (99-107); GLUCOSE 119 MG/DL (70-104); MAGNESIUM 1.4 MG/DL (1.5-2.4); PHOSPHORUS 5.1 MG/DL (2.3-4.5); POTASSIUM 3.8 MMOL/L (3.5-5.1); SODIUM 134 MMOL/L (135-145); TOTAL CARBON DIOXIDE 23.2 MMOL/L (24-32); TOTAL PROTEIN 5.7 G/DL (6.4-8.2); VANCOMYCIN,RANDOM 18.9 UG/ML; eGFR 14 ML/MIN
[2020-01-25 02:47] LABS: BASOPHILS % (AUTO) 0.1 % (0-1); EOSINOPHILS # (AUTO) 0.1 X10'3 (0-0.9); EOSINOPHILS % (AUTO) 0.8 % (0-6); HEMATOCRIT 34.1 % (42.0-52.0); HEMOGLOBIN 10.9 g/dl (14.0-17.9); LYMPHOCYTES # (AUTO) 0.4 X10'3 (1.1-4.8); LYMPHOCYTES % (AUTO) 4.5 % (21-51); MEAN CORPUSCULAR HEMOGLOBIN 26.8 PG (27.0-31.0); MEAN CORPUSCULAR VOLUME 83.7 FL (78-98); MONOCYTES # (AUTO) 0.5 X10'3 (0-0.9); MONOCYTES % (AUTO) 5.1 % (2-12); NEUTROPHILS # (AUTO) 8.5 X10'3 (1.8-7.7); NEUTROPHILS % (AUTO) 89.5 % (42-75); PLATELET COUNT 74 X10'3 (140-440); RED BLOOD COUNT 4.07 X10'6 (4.70-6.10); WHITE BLOOD COUNT 9.5 X10'3 (4.5-11.0)
[2020-01-25] MEDS: VANCOMYCIN LEVEL IV SCH (03:00)
[2020-01-25] MEDS: ipratropium/albuterol 3ml nebule NEB SCH ×6 (03:25→23:19)
[2020-01-25] MEDS: NORepinephrine 8mg/ 250ml NS 250 ML IV SCH ×4 (03:26→20:03)
[2020-01-25 03:41] LABS: ABG BASE EXCESS -6.7 mmol/L (-2.0-2.0); ABG HCO3 19.8 mmol/L (22.0-26.0); ABG OXYGEN SATURATION 95.9 % (94-97); ABG PCO2 (T) 42.2 mmHg (35.0-48.0); ABG PO2 (T) 83.8 mmHg (75.0-100.0); ALLEN'S TEST POSITIVE; FCOHb 0.6 % (0.0-3.9); FMetHb 0.2 % (0.0-1.5); FO2Hb 95.1 % (94-97); PATIENT TEMPERATURE 36.6; PEEP 5 cm H2O; RESPIRATORY RATE 20 b/min; TIDAL VOLUME 450 mL
[2020-01-25] MEDS: DOBUTamine-DoBUTrex 500mg/D5W 250 ML IV SCH ×2 (05:13→22:20)
--- NOTE | 2020-01-25 06:30 | NUR ---
Problems reprioritized. Patient report given, questions answered & plan of care reviewed with Michael ZHOU.
[2020-01-25] MEDS: Dextrose 10%-water IV solution 1,000 ML IV SCH ×3 (07:30→17:57)
[2020-01-25] MEDS ORDERED: vancomycin/NS 1 GM ADD-VANTAGE 250 ML IV SCH (08:00)
[2020-01-25] MEDS: K, MAG and/or Phos replacement - Verify level? MC SCH (08:00)
[2020-01-25] MEDS: clindamycin 600mg/D5W 50ml 50 ML IV SCH ×2 (08:41→20:12)
[2020-01-25] MEDS: furosemide 10 MG/1 ML 10ml inj IV SCH ×2 (08:42→20:10)
[2020-01-25] MEDS: apixaban 5mg tablet PO SCH (08:42)
[2020-01-25] MEDS: amiodarone 200mg tablet PO SCH (08:42)
[2020-01-25] MEDS: pantoprazole 40 MG vial IV SCH (08:42)
[2020-01-25] MEDS: lactobacillus rhamnosus 10,000 MMU CELLS/CAPSULE PO SCH (08:42)
[2020-01-25] MEDS: mineral oil/petrolatum ophthal oint EACHEYE SCH ×3 (08:42→20:12)
--- NOTE | 2020-01-25 10:32 | NUR ---
TF consult: Pt documented with an OG tube in place. TF recommendations below. Will continue to follow closely. Recommendations: 1) Continuous Vital High Protein via OG tube with goal rate of 80 mL/hr. To begin at 20 mL/hr and advance by 20 mL Q8H to goal rate. Once at goal to provide: 1920 mL total volume/day, 1920 kcal, 168 g protein, 1605 mL total volume 2) Additional water flush per MD given low serum Na 3) Prealbumin q Thursday/; daily weights 4) PO diet advancement to heart healthy as medically indicated following extubation Addendum: 01/25/20 at [address] Amended: Links added.
[2020-01-25] MEDS ORDERED: dextrose ORAL solution 15 GM/59 ML bottle OGT PRN ×2 (12:27)
[2020-01-25] MEDS ORDERED: magnesium hydroxide 30ml (MOM) UD suspension OGT PRN (12:29)
[2020-01-25] MEDS ORDERED: POTASSIUM BICARB 20meq eff tab 20 MEQ TABLET.EFF OGT PRN (12:30)
--- NOTE | 2020-01-25 18:20 | NUR ---
Patient in room CICU 2010. I have received report from Michael ZHOU and had the opportunity to ask questions and assume patient care. Patient is on ventilator with light sedation. He is not waking or responding to me. HR is 120-145 and he is in A-fib. Will continue to monitor.
[2020-01-25] MEDS: midazolam 100mg in NS 100ml 100 ML IV PRN (18:58)
[2020-01-25] MEDS: lactobacillus rhamnosus 10,000 MMU CELLS/CAPSULE OGT SCH (20:09)
[2020-01-25] MEDS: apixaban 5mg tablet OGT SCH (20:09)
[2020-01-26] VITALS (23 sets, daily range): BP systolic 91–137; BP diastolic 57–86
[2020-01-26 02:30] LABS: BASOPHILS % (AUTO) 0.3 % (0-1); EOSINOPHILS % (AUTO) 0.2 % (0-6); HEMATOCRIT 36.3 % (42.0-52.0); HEMOGLOBIN 11.9 g/dl (14.0-17.9); LYMPHOCYTES # (AUTO) 0.6 X10'3 (1.1-4.8); LYMPHOCYTES % (AUTO) 8.1 % (21-51); MEAN CORPUSCULAR HGB CONC 32.9 g/dL (33.0-36.5); MEAN CORPUSCULAR VOLUME 82.2 FL (78-98); MEAN PLATELET VOLUME 9.1 FL (7.4-10.4); MONOCYTES # (AUTO) 0.6 X10'3 (0-0.9); MONOCYTES % (AUTO) 8.3 % (2-12); NEUTROPHILS % (AUTO) 83.1 % (42-75); RED BLOOD COUNT 4.41 X10'6 (4.70-6.10); RED CELL DISTRIBUTION WIDTH 21.6 % (11.5-14.5); WHITE BLOOD COUNT 7.2 X10'3 (4.5-11.0)
[2020-01-26 02:34] LABS: PLATELET COUNT 50 X10'3 (140-440)
[2020-01-26 02:40] LABS: PARTIAL THROMBOPLASTIN TIME 47 SECONDS (22-32)
[2020-01-26 02:41] LABS: ALANINE AMINOTRANSFERASE 85 U/L (12-78); ALBUMIN 2.1 G/DL (3.4-5.0); ALBUMIN/GLOBULIN RATIO 0.5 (1.1-1.5); ALKALINE PHOSPHATASE 60 IU/L (46-116); ANION GAP 9 (8-16); ASPARTATE AMINO TRANSFERASE 87 U/L (10-37); BILIRUBIN,TOTAL 3.1 MG/DL (0.1-1.0); BLOOD UREA NITROGEN 60 MG/DL (7-18); BUN/CREATININE RATIO 15.1 (5.4-32.0); CALCIUM 7.5 MG/DL (8.5-10.1); CHLORIDE 102 MMOL/L (99-107); CREATININE 3.98 MG/DL (0.60-1.10); GLUCOSE 122 MG/DL (70-104); MAGNESIUM 2.3 MG/DL (1.5-2.4); PHOSPHORUS 4.8 MG/DL (2.3-4.5); POTASSIUM 3.3 MMOL/L (3.5-5.1); PREALBUMIN 4.4 MG/DL (19-36); SODIUM 135 MMOL/L (135-145); TOTAL CARBON DIOXIDE 24.1 MMOL/L (24-32); TOTAL PROTEIN 6.1 G/DL (6.4-8.2); VANCOMYCIN,RANDOM 13.7 UG/ML; eGFR 16 ML/MIN
[2020-01-26] MEDS: VANCOMYCIN LEVEL IV SCH (03:00)
[2020-01-26] MEDS: ipratropium/albuterol 3ml nebule NEB SCH ×6 (03:07→22:53)
[2020-01-26] MEDS: Dextrose 10%-water IV solution 1,000 ML IV SCH ×2 (03:09→14:20)
[2020-01-26] MEDS: FENTANYL-0.9 % NACL/PF 100 ML IV PRN (03:09)
[2020-01-26] MEDS: mineral oil/petrolatum ophthal oint EACHEYE SCH ×4 (03:10→20:44)
[2020-01-26 03:51] LABS: ABG BASE EXCESS -4.2 mmol/L (-2.0-2.0); ABG HCO3 19.8 mmol/L (22.0-26.0); ABG PCO2 (T) 32.4 mmHg (35.0-48.0); ABG PO2 (T) 110.9 mmHg (75.0-100.0); ALLEN'S TEST POSITIVE; FCOHb 0.9 % (0.0-3.9); FMetHb 0.1 % (0.0-1.5); PATIENT TEMPERATURE 36.6; PEEP 5 cm H2O; RESPIRATORY RATE 22 b/min; TIDAL VOLUME 450 mL; TOTAL HEMOGLOBIN 12.9 G/dl (14.0-18.0)
--- NOTE | 2020-01-26 04:10 | NUR ---
PT. HAS CRITICAL LAB: Plt 50 - Jeremy Matias notified.
[2020-01-26 04:56] LABS: ANISOCYTOSIS 3+; PLATELET ESTIMATE DECREASED
[2020-01-26 04:57] LABS: ELLIPTOCYTES 1+
[2020-01-26 04:58] LABS: BURR CELLS 1+; HYPOCHROMASIA 1+; POIKILOCYTOSIS FEW; SCHISTOCYTES FEW
--- NOTE | 2020-01-26 06:42 | NUR ---
Problems reprioritized. Patient report given, questions answered & plan of care reviewed with Jose A ZHOU.
[2020-01-26] MEDS ORDERED: vancomycin/NS 1 GM ADD-VANTAGE 250 ML X 1 DOSE IV ONE (08:00)
[2020-01-26] MEDS: K, MAG and/or Phos replacement - Verify level? MC SCH (08:00)
[2020-01-26] MEDS: apixaban 5mg tablet OGT SCH ×2 (08:29→20:45)
[2020-01-26] MEDS: lactobacillus rhamnosus 10,000 MMU CELLS/CAPSULE OGT SCH ×2 (08:29→20:46)
[2020-01-26] MEDS: amiodarone 200mg tablet OGT SCH (08:30)
[2020-01-26] MEDS: clindamycin 600mg/D5W 50ml 50 ML IV SCH ×2 (08:30→20:45)
[2020-01-26] MEDS: furosemide 10 MG/1 ML 10ml inj IV SCH ×2 (08:30→20:44)
[2020-01-26] MEDS: pantoprazole 40 MG vial IV SCH (08:30)
[2020-01-26] MEDS ORDERED: bisacodyl 10mg suppository rectal RC STA ×2 (09:58→11:31)
[2020-01-26] MEDS: POTASSIUM BICARB 20meq eff tab 20 MEQ TABLET.EFF OGT PRN ×2 (11:34→16:49)
[2020-01-26] MEDS: methylnaltrexone br 12mg/0.6ml inj***SubQ only SQ SCH (11:37)
[2020-01-26 11:48] LABS: URINE AMPHETAMINE SCREEN NEGATIVE (Neg); URINE BARBITUATE SCREEN NEGATIVE (Neg); URINE BENZODIAZEPINES SCREEN POSITIVE (Neg); URINE CANNABINOID SCREEN NEGATIVE (Neg); URINE COCAINE SCREEN NEGATIVE (Neg); URINE METHADONE SCREEN NEGATIVE (Neg); URINE OPIATE SCREEN NEGATIVE (Neg); URINE PHENCYCLIDINE SCREEN NEGATIVE (Neg)
--- NOTE | 2020-01-26 12:05 | NUR ---
Pt with a low Phil of 12. Per [facility] notes pt with reddened BLE with no significant open wounds. Per RN at critical care rounds TF was turned off this morning d/t consistent gastric residuals of 300-350 mL. Pt started on routine Relistor and Lactulose and given a one time dose of Dulcolax suppository today. PRN MoM remains available. LBM 01/23. Will continue to follow closely. Recommendations: 1) Continuous Vital High Protein via OG tube with goal rate of 80 mL/hr. To begin at 20 mL/hr and advance by 20 mL Q8H to goal rate. Once at goal to provide: 1920 mL total volume/day, 1920 kcal, 168 g protein, 1605 mL total volume 2) Additional water flush per MD given low serum Na 3) Prealbumin q Thursday/; daily weights 4) Routine bowel care; opioid antagonist per MD; consider prokinetic agent 5) PO diet advancement to heart healthy as medically indicated following extubation Addendum: 01/26/20 at [address] Amended: Links added.
[2020-01-26] MEDS: lactulose 20gm/30ml cup PO SCH ×2 (14:18→20:46)
--- NOTE | 2020-01-26 14:30 | NUR ---
called [employer] to get patient's AICD interrogated. could not find patient in system. dry wall nailer, Kierra, tonie.
[2020-01-26] MEDS: DOBUTamine-DoBUTrex 500mg/D5W 250 ML IV SCH (17:42)
--- NOTE | 2020-01-26 18:20 | NUR ---
Patient in room CICU 2010. I have received report from Jose A ZHOU and had the opportunity to ask questions and assume patient care.
[2020-01-27] VITALS (24 sets, daily range): BP systolic 93–147; BP diastolic 65–95
[2020-01-27] MEDS: ipratropium/albuterol 3ml nebule NEB SCH ×6 (02:38→22:25)
[2020-01-27] MEDS: VANCOMYCIN LEVEL IV SCH (03:00)
[2020-01-27 03:35] LABS: PARTIAL THROMBOPLASTIN TIME 45 SECONDS (22-32)
[2020-01-27 03:37] LABS: ALANINE AMINOTRANSFERASE 70 U/L (12-78); ALKALINE PHOSPHATASE 75 IU/L (46-116); ANION GAP 10 (8-16); ASPARTATE AMINO TRANSFERASE 57 U/L (10-37); BILIRUBIN,TOTAL 5.3 MG/DL (0.1-1.0); BLOOD UREA NITROGEN 54 MG/DL (7-18); BUN/CREATININE RATIO 16.4 (5.4-32.0); CALCIUM 7.8 MG/DL (8.5-10.1); CHLORIDE 101 MMOL/L (99-107); GLUCOSE 140 MG/DL (70-104); MAGNESIUM 1.6 MG/DL (1.5-2.4); SODIUM 137 MMOL/L (135-145); TOTAL CARBON DIOXIDE 26.5 MMOL/L (24-32); VANCOMYCIN,RANDOM 18.5 UG/ML; eGFR 20 ML/MIN
[2020-01-27 03:38] LABS: ALBUMIN/GLOBULIN RATIO 0.5 (1.1-1.5); TOTAL PROTEIN 6.1 G/DL (6.4-8.2)
[2020-01-27 03:39] LABS: BASOPHILS % (AUTO) 0.1 % (0-1); EOSINOPHILS % (AUTO) 0.2 % (0-6); HEMATOCRIT 36.7 % (42.0-52.0); HEMOGLOBIN 12.3 g/dl (14.0-17.9); LYMPHOCYTES # (AUTO) 0.7 X10'3 (1.1-4.8); LYMPHOCYTES % (AUTO) 11.7 % (21-51); MEAN CORPUSCULAR HEMOGLOBIN 26.9 PG (27.0-31.0); MEAN CORPUSCULAR HGB CONC 33.6 g/dL (33.0-36.5); MEAN CORPUSCULAR VOLUME 80.1 FL (78-98); MEAN PLATELET VOLUME 8.9 FL (7.4-10.4); MONOCYTES # (AUTO) 0.3 X10'3 (0-0.9); MONOCYTES % (AUTO) 5.4 % (2-12); NEUTROPHILS # (AUTO) 5.2 X10'3 (1.8-7.7); NEUTROPHILS % (AUTO) 82.6 % (42-75); RED BLOOD COUNT 4.59 X10'6 (4.70-6.10); RED CELL DISTRIBUTION WIDTH 21.9 % (11.5-14.5); WHITE BLOOD COUNT 6.3 X10'3 (4.5-11.0)
[2020-01-27 03:41] LABS: ABG BASE EXCESS 1.9 mmol/L (-2.0-2.0); ABG HCO3 23.5 mmol/L (22.0-26.0); ABG OXYGEN SATURATION 98.2 % (94-97); ABG PCO2 (T) 28.4 mmHg (35.0-48.0); ABG PO2 (T) 103.4 mmHg (75.0-100.0); ALLEN'S TEST POSITIVE; FCOHb 0.9 % (0.0-3.9); FMetHb 0.1 % (0.0-1.5); FO2Hb 97.2 % (94-97); PATIENT TEMPERATURE 36.8; PEEP 5 cm H2O; RESPIRATORY RATE 22 b/min; TIDAL VOLUME 450 mL; TOTAL HEMOGLOBIN 13.3 G/dl (14.0-18.0)
[2020-01-27 03:42] LABS: POTASSIUM 2.7 MMOL/L (3.5-5.1)
[2020-01-27 03:45] LABS: PLATELET COUNT 41 X10'3 (140-440)
[2020-01-27] MEDS: mineral oil/petrolatum ophthal oint EACHEYE SCH ×4 (03:49→19:30)
[2020-01-27] MEDS ORDERED: potassium Cl 20 mEq SR tablet PO PRN ×2 (06:15)
[2020-01-27] MEDS ORDERED: potassium CL 10mEq/100ml bag 100 ML IV PRN (06:15)
--- NOTE | 2020-01-27 06:20 | NUR ---
Problems reprioritized. Patient report given, questions answered & plan of care reviewed with Jose A ZHOU.
--- NOTE | 2020-01-27 06:20 | NUR ---
Patient in room CICU 2010. I have received report from Mitali ZHOU and had the opportunity to ask questions and assume patient care.
[2020-01-27] MEDS: Dextrose 10%-water IV solution 1,000 ML IV SCH ×3 (06:22→17:12)
[2020-01-27] MEDS: potassium Cl 20mEq/100mL bag 100 ML IV PRN ×5 (06:52→17:27)
[2020-01-27] MEDS: pantoprazole 40 MG vial IV SCH (07:40)
[2020-01-27] MEDS: apixaban 5mg tablet OGT SCH ×2 (07:41→19:30)
[2020-01-27] MEDS: lactobacillus rhamnosus 10,000 MMU CELLS/CAPSULE OGT SCH ×2 (07:41→19:28)
[2020-01-27] MEDS: amiodarone 200mg tablet OGT SCH (07:41)
[2020-01-27] MEDS: furosemide 10 MG/1 ML 10ml inj IV SCH ×2 (07:41→19:25)
[2020-01-27] MEDS: clindamycin 600mg/D5W 50ml 50 ML IV SCH ×2 (07:41→19:30)
[2020-01-27] MEDS: lactulose 20gm/30ml cup PO SCH ×3 (07:50→19:26)
[2020-01-27] MEDS: K, MAG and/or Phos replacement - Verify level? MC SCH ×2 (08:00)
[2020-01-27] MEDS ORDERED: metoclopramide 5 mg/ml inj IV PRN (11:00)
--- NOTE | 2020-01-27 11:00 | NUR ---
notified Dr. Montoya that patient's left leg is more reddened, has more blisters and is darkened. Dr. Montoya called Dr. Hall to consult. Dr. Montoya also notified about patient's AICD not being compatible with interrogators from ER. Also, notified of patient's plt count of 41, new orders received for pepcid and to d/c protonix. New orders received for reglan q6h. patient is still having high residuals.
--- NOTE | 2020-01-27 12:38 | NUR ---
contacted Dr. Warner' office to call Dr. Montoya for consult with patient. Left message with Dr. Warner' messaging service.
--- NOTE | 2020-01-27 13:25 | NUR ---
interrogated patient's [employer] ([employer]) AICD. Called Donald Mccall with [employer] and he stated that the AICD has been functioning properly and patient has not had any shocks delivered since March. The patient first noted to be in AFib at the end of December for a little bit, then more recent. Stated patient has been in AFib for the past two days. [employer] AICD phone number
[2020-01-27] MEDS: famotidine/PF 10 mg/ml inj IV SCH (19:25)
[2020-01-27] MEDS: metoclopramide 5 mg/ml inj IV SCH (19:28)
[2020-01-28] VITALS (24 sets, daily range): BP systolic 130–158; BP diastolic 78–108
[2020-01-28] MEDS: NORepinephrine 8mg/ 250ml NS 250 ML IV SCH (00:01)
[2020-01-28] MEDS: mineral oil/petrolatum ophthal oint EACHEYE SCH ×4 (01:25→20:16)
[2020-01-28] MEDS: metoclopramide 5 mg/ml inj IV SCH ×4 (01:25→20:15)
[2020-01-28] MEDS: FENTANYL-0.9 % NACL/PF 100 ML IV PRN ×2 (01:25→22:25)
[2020-01-28] MEDS: Dextrose 10%-water IV solution 1,000 ML IV SCH ×3 (02:18→23:52)
[2020-01-28] MEDS: VANCOMYCIN LEVEL IV SCH (03:00)
[2020-01-28] MEDS: ipratropium/albuterol 3ml nebule NEB SCH ×6 (03:02→22:43)
[2020-01-28 03:30] LABS: PARTIAL THROMBOPLASTIN TIME 43 SECONDS (22-32)
[2020-01-28 03:35] LABS: ALANINE AMINOTRANSFERASE 62 U/L (12-78); ALBUMIN 2.1 G/DL (3.4-5.0); ALKALINE PHOSPHATASE 143 IU/L (46-116); ANION GAP 8 (8-16); ASPARTATE AMINO TRANSFERASE 58 U/L (10-37); BILIRUBIN,TOTAL 8.7 MG/DL (0.1-1.0); BLOOD UREA NITROGEN 51 MG/DL (7-18); BUN/CREATININE RATIO 17.8 (5.4-32.0); CALCIUM 8.2 MG/DL (8.5-10.1); CHLORIDE 98 MMOL/L (99-107); CREATININE 2.86 MG/DL (0.60-1.10); GLUCOSE 137 MG/DL (70-104); MAGNESIUM 1.5 MG/DL (1.5-2.4); POTASSIUM 3.1 MMOL/L (3.5-5.1); SODIUM 134 MMOL/L (135-145); TOTAL CARBON DIOXIDE 28.1 MMOL/L (24-32); VANCOMYCIN,RANDOM 13.7 UG/ML; eGFR 23 ML/MIN
[2020-01-28 03:37] LABS: ALBUMIN/GLOBULIN RATIO 0.4 (1.1-1.5); PHOSPHORUS 2.6 MG/DL (2.3-4.5); TOTAL PROTEIN 6.8 G/DL (6.4-8.2)
[2020-01-28] MEDS: DOBUTamine-DoBUTrex 500mg/D5W 250 ML IV SCH (03:41)
[2020-01-28 03:45] LABS: ABG BASE EXCESS 1.9 mmol/L (-2.0-2.0); ABG HCO3 25.7 mmol/L (22.0-26.0); ABG OXYGEN SATURATION 97.3 % (94-97); ABG PCO2 (T) 38.8 mmHg (35.0-48.0); ALLEN'S TEST POSITIVE; FCOHb 1.1 % (0.0-3.9); FMetHb 0.2 % (0.0-1.5); PATIENT TEMPERATURE 37.7; PEEP 5 cm H2O; RESPIRATORY RATE 18 b/min; TIDAL VOLUME 450 mL; TOTAL HEMOGLOBIN 14.1 G/dl (14.0-18.0)
[2020-01-28 04:00] LABS: BASOPHILS % (AUTO) 0.1 % (0-1); EOSINOPHILS % (AUTO) 0.3 % (0-6); HEMATOCRIT 39.4 % (42.0-52.0); HEMOGLOBIN 13.1 g/dl (14.0-17.9); LYMPHOCYTES # (AUTO) 1.5 X10'3 (1.1-4.8); LYMPHOCYTES % (AUTO) 14.5 % (21-51); MEAN CORPUSCULAR HEMOGLOBIN 26.9 PG (27.0-31.0); MEAN CORPUSCULAR HGB CONC 33.3 g/dL (33.0-36.5); MEAN CORPUSCULAR VOLUME 80.8 FL (78-98); MEAN PLATELET VOLUME 8.8 FL (7.4-10.4); MONOCYTES # (AUTO) 0.6 X10'3 (0-0.9); MONOCYTES % (AUTO) 5.7 % (2-12); NEUTROPHILS # (AUTO) 8.1 X10'3 (1.8-7.7); NEUTROPHILS % (AUTO) 79.4 % (42-75); PLATELET COUNT 59 X10'3 (140-440); RED BLOOD COUNT 4.88 X10'6 (4.70-6.10); RED CELL DISTRIBUTION WIDTH 21.6 % (11.5-14.5); WHITE BLOOD COUNT 10.1 X10'3 (4.5-11.0)
[2020-01-28] MEDS: potassium Cl 20mEq/100mL bag 100 ML IV PRN ×6 (06:09→15:46)
--- NOTE | 2020-01-28 06:15 | NUR ---
Patient in room [facility] 2010. I have received report from Jose A ZHOU and had the opportunity to ask questions and assume patient care. Addendum: 01/28/20 at 0623 by Mitali Domingo RN 01/27/20
--- NOTE | 2020-01-28 06:23 | NUR ---
Problems reprioritized. Patient report given, questions answered & plan of care reviewed with Jose A ZHOU.
[2020-01-28] MEDS: lactulose 20gm/30ml cup PO SCH ×3 (07:15→20:14)
[2020-01-28] MEDS: methylnaltrexone br 12mg/0.6ml inj***SubQ only SQ SCH (07:15)
[2020-01-28] MEDS: clindamycin 600mg/D5W 50ml 50 ML IV SCH (07:15)
[2020-01-28] MEDS: furosemide 10 MG/1 ML 10ml inj IV SCH ×2 (07:16→20:15)
[2020-01-28] MEDS: apixaban 5mg tablet OGT SCH ×2 (07:16→20:16)
[2020-01-28] MEDS: amiodarone 200mg tablet OGT SCH (07:16)
[2020-01-28] MEDS: lactobacillus rhamnosus 10,000 MMU CELLS/CAPSULE OGT SCH ×2 (07:16→20:16)
[2020-01-28] MEDS: famotidine/PF 10 mg/ml inj IV SCH ×2 (07:16→20:15)
[2020-01-28] MEDS ORDERED: vancomycin/NS 1 GM ADD-VANTAGE 250 ML X 1 DOSE IV PRN (07:21)
[2020-01-28] MEDS ORDERED: vancomycin/NS 1 GM ADD-VANTAGE 250 ML X 1 DOSE IV ONE (07:22)
[2020-01-28 07:50] LABS: ANISOCYTOSIS 3+; MICROCYTOSIS 1+; PLATELET ESTIMATE DECREASED
[2020-01-28 07:51] LABS: POIKILOCYTOSIS FEW; TARGET CELLS FEW
[2020-01-28] MEDS: K, MAG and/or Phos replacement - Verify level? MC SCH ×2 (08:00)
[2020-01-28] MEDS ORDERED: ampicillin inj 2 GM in normal saline 100ml IV soln 100 ML IV SCH (14:00)
[2020-01-28 14:01] LABS: CREATINE KINASE 17 U/L (39-308)
[2020-01-28 14:16] LABS: HIV ANTIBODY 1&2 RAPID NON-REACTIVE (Neg)
[2020-01-28] MEDS ORDERED: NORMAL SALINE IV ONE (14:40)
[2020-01-28] MEDS ORDERED: [UNRECOGNIZED DRUG - OTHER] IV ONE (14:40)
[2020-01-28] MEDS: CLINDAMYCIN/D5W 900mg/50ml 50 ML IV SCH ×2 (16:28→23:53)
[2020-01-28] MEDS: NORMAL SALINE IV SCH (20:15)
[2020-01-28] MEDS: [UNRECOGNIZED DRUG - OTHER] IV SCH (20:15)
[2020-01-29] VITALS (22 sets, daily range): BP systolic 131–162; BP diastolic 80–106
[2020-01-29] MEDS: mineral oil/petrolatum ophthal oint EACHEYE SCH ×4 (02:10→19:44)
[2020-01-29] MEDS: NORMAL SALINE IV SCH ×4 (02:10→19:45)
[2020-01-29] MEDS: [UNRECOGNIZED DRUG - OTHER] IV SCH ×4 (02:10→19:45)
[2020-01-29] MEDS: metoclopramide 5 mg/ml inj IV SCH ×4 (02:10→19:45)
[2020-01-29] MEDS: ipratropium/albuterol 3ml nebule NEB SCH ×5 (02:22→19:12)
[2020-01-29 02:35] LABS: BASOPHILS % (AUTO) 0.1 % (0-1); EOSINOPHILS % (AUTO) 0.3 % (0-6); HEMATOCRIT 37.2 % (42.0-52.0); HEMOGLOBIN 12.4 g/dl (14.0-17.9); LYMPHOCYTES # (AUTO) 2.2 X10'3 (1.1-4.8); LYMPHOCYTES % (AUTO) 16.6 % (21-51); MEAN CORPUSCULAR HEMOGLOBIN 26.5 PG (27.0-31.0); MEAN CORPUSCULAR HGB CONC 33.4 g/dL (33.0-36.5); MEAN CORPUSCULAR VOLUME 79.4 FL (78-98); MEAN PLATELET VOLUME 8.9 FL (7.4-10.4); MONOCYTES # (AUTO) 0.7 X10'3 (0-0.9); MONOCYTES % (AUTO) 5.6 % (2-12); NEUTROPHILS # (AUTO) 10.4 X10'3 (1.8-7.7); NEUTROPHILS % (AUTO) 77.4 % (42-75); PLATELET COUNT 97 X10'3 (140-440); RED BLOOD COUNT 4.69 X10'6 (4.70-6.10); RED CELL DISTRIBUTION WIDTH 21.1 % (11.5-14.5); WHITE BLOOD COUNT 13.4 X10'3 (4.5-11.0)
[2020-01-29] MEDS: VANCOMYCIN LEVEL IV SCH (02:41)
[2020-01-29] MEDS: NORepinephrine 8mg/ 250ml NS 250 ML IV SCH (02:42)
[2020-01-29 02:47] LABS: PARTIAL THROMBOPLASTIN TIME 40 SECONDS (22-32)
[2020-01-29 02:48] LABS: ALANINE AMINOTRANSFERASE 51 U/L (12-78); ALBUMIN 1.9 G/DL (3.4-5.0); ALKALINE PHOSPHATASE 168 IU/L (46-116); ANION GAP 6 (8-16); ASPARTATE AMINO TRANSFERASE 61 U/L (10-37); BILIRUBIN,TOTAL 9.6 MG/DL (0.1-1.0); BLOOD UREA NITROGEN 47 MG/DL (7-18); BUN/CREATININE RATIO 19.1 (5.4-32.0); CALCIUM 8.1 MG/DL (8.5-10.1); CHLORIDE 97 MMOL/L (99-107); CREATININE 2.46 MG/DL (0.60-1.10); GLUCOSE 123 MG/DL (70-104); POTASSIUM 3.1 MMOL/L (3.5-5.1); SODIUM 132 MMOL/L (135-145); TOTAL CARBON DIOXIDE 29.4 MMOL/L (24-32); eGFR 27 ML/MIN
[2020-01-29 02:49] LABS: MAGNESIUM 1.3 MG/DL (1.5-2.4); VANCOMYCIN,RANDOM 17.9 UG/ML
[2020-01-29 02:50] LABS: ALBUMIN/GLOBULIN RATIO 0.4 (1.1-1.5); PHOSPHORUS 2.1 MG/DL (2.3-4.5); TOTAL PROTEIN 6.6 G/DL (6.4-8.2)
[2020-01-29 03:46] LABS: ABG BASE EXCESS 5.4 mmol/L (-2.0-2.0); ABG HCO3 30.1 mmol/L (22.0-26.0); ABG OXYGEN SATURATION 96.4 % (94-97); ABG PCO2 (T) 46.7 mmHg (35.0-48.0); ABG PO2 (T) 94.8 mmHg (75.0-100.0); ALLEN'S TEST POSITIVE; FCOHb 1.1 % (0.0-3.9); FMetHb 0.1 % (0.0-1.5); FO2Hb 95.2 % (94-97); PATIENT TEMPERATURE 38.2; PEEP 5 cm H2O; RESPIRATORY RATE 18 b/min; TIDAL VOLUME 450 mL; TOTAL HEMOGLOBIN 13.8 G/dl (14.0-18.0)
[2020-01-29] MEDS: POTASSIUM BICARB 20meq eff tab 20 MEQ TABLET.EFF OGT PRN ×3 (03:47→12:08)
--- NOTE | 2020-01-29 06:49 | NUR ---
Patient in room CICU 2010. I have received report from Hemant and had the opportunity to ask questions and assume patient care.
[2020-01-29 07:23] LABS: ANISOCYTOSIS 3+; MICROCYTOSIS 1+; NUCLEATED RED BLOOD CELLS 1 /100WBC (0-0); PLATELET ESTIMATE DECREASED; ROULEAUX 1+; TOTAL CELLS COUNTED 100; TOXIC GRANULATION 2+
[2020-01-29 07:24] LABS: BURR CELLS 1+; POLYCHROMASIA 1+; SCHISTOCYTES FEW; TARGET CELLS FEW
[2020-01-29] MEDS: CLINDAMYCIN/D5W 900mg/50ml 50 ML IV SCH ×2 (07:39→15:58)
[2020-01-29] MEDS: K, MAG and/or Phos replacement - Verify level? MC SCH ×2 (08:00)
[2020-01-29] MEDS: famotidine/PF 10 mg/ml inj IV SCH ×2 (08:21→19:44)
[2020-01-29] MEDS: lactulose 20gm/30ml cup PO SCH ×2 (08:21→12:08)
[2020-01-29] MEDS: furosemide 10 MG/1 ML 10ml inj IV SCH ×2 (08:21→19:44)
[2020-01-29] MEDS: Neutra Phos packet OGT PRN ×3 (08:22→17:40)
[2020-01-29] MEDS: amiodarone 200mg tablet OGT SCH (08:23)
[2020-01-29] MEDS: lactobacillus rhamnosus 10,000 MMU CELLS/CAPSULE OGT SCH ×2 (08:23→19:45)
[2020-01-29] MEDS: apixaban 5mg tablet OGT SCH ×2 (08:23→19:45)
[2020-01-29] MEDS: Dextrose 10%-water IV solution 1,000 ML IV SCH ×2 (09:09→22:20)
--- NOTE | 2020-01-29 13:10 | NUR ---
0900-patient not making any purposeful movement with extremities, bites down and moves tongue with oral care. sclera jaundiced, left leg hot to the touch, deep red color extends up to hip, periarea and inner thighs with intertriginous dermatitis, placed interdry at groin, right leg cold to touch, posterior tibial pulse with doppler, not present on dorsalis pedis, 2 open areas to right forearm, applied optifoam x 2, placed optifoam to coccyx preventative. Chlorhexidine wiped down patients body, clubbing noted at fingernails. 1000- Dr Mobley rounded, Ok with K and Phos replaced, does not want Mag replacement ordered, Ok to titrate down and D/c D10 as TF rate goes up.
--- NOTE | 2020-01-29 14:43 | NUR ---
Reassessment: Pt TF advancing after 4 days at 20ml/hr w/ GRV never high enough to warrant holding. Currently at 60ml/hr and tolerating. LBM 01/26 receiving lactulose TID. Na 132 receiving dex which is weaning down w/ increase in EN per RN. Will continue to monitor for TF tolerance on vent. Recommendations: 1) Continuous Vital High Protein via OG tube with goal rate of 80 mL/hr. To begin at 20 mL/hr and advance by 20 mL Q8H to goal rate. Once at goal to provide: 1920 mL total volume/day, 1920 kcal, 168 g protein, 1605 mL total volume 2) Additional water flush per MD given low serum Na 3) Prealbumin q Thursday/; daily weights 4) Routine bowel care; opioid antagonist per MD; consider prokinetic agent 5) PO diet advancement to heart healthy as medically indicated following extubation Addendum: 01/29/20 at [address] Amended: Links added.
--- NOTE | 2020-01-29 15:02 | NUR ---
1500- BP 159/100, relayed to Dr Mobley, no new order. OK to make lactulose PRN
[2020-01-29] MEDS: FENTANYL-0.9 % NACL/PF 100 ML IV PRN (17:09)
[2020-01-29] MEDS: DOBUTamine-DoBUTrex 500mg/D5W 250 ML IV SCH (22:44)
[2020-01-30] VITALS (24 sets, daily range): BP systolic 109–170; BP diastolic 62–98
[2020-01-30] MEDS: ipratropium/albuterol 3ml nebule NEB SCH ×5 (00:17→20:35)
[2020-01-30] MEDS: mineral oil/petrolatum ophthal oint EACHEYE SCH ×2 (02:33→08:00)
[2020-01-30] MEDS: metoclopramide 5 mg/ml inj IV SCH ×2 (02:33→08:05)
[2020-01-30] MEDS: NORMAL SALINE IV SCH ×4 (02:35→19:42)
[2020-01-30] MEDS: Dextrose 10%-water IV solution 1,000 ML IV SCH (02:35)
[2020-01-30] MEDS: [UNRECOGNIZED DRUG - OTHER] IV SCH ×4 (02:35→19:42)
[2020-01-30 03:06] LABS: BASOPHILS % (AUTO) 0.2 % (0-1); EOSINOPHILS % (AUTO) 0.3 % (0-6); HEMATOCRIT 36.2 % (42.0-52.0); HEMOGLOBIN 12.2 g/dl (14.0-17.9); LYMPHOCYTES % (AUTO) 12.7 % (21-51); MEAN CORPUSCULAR HEMOGLOBIN 26.6 PG (27.0-31.0); MEAN CORPUSCULAR HGB CONC 33.7 g/dL (33.0-36.5); MEAN PLATELET VOLUME 8.4 FL (7.4-10.4); MONOCYTES # (AUTO) 0.9 X10'3 (0-0.9); MONOCYTES % (AUTO) 5.4 % (2-12); NEUTROPHILS # (AUTO) 13.1 X10'3 (1.8-7.7); NEUTROPHILS % (AUTO) 81.4 % (42-75); PLATELET COUNT 141 X10'3 (140-440); RED BLOOD COUNT 4.58 X10'6 (4.70-6.10); RED CELL DISTRIBUTION WIDTH 21.4 % (11.5-14.5)
[2020-01-30 03:27] LABS: PARTIAL THROMBOPLASTIN TIME 36 SECONDS (22-32)
[2020-01-30 03:30] LABS: ALANINE AMINOTRANSFERASE 44 U/L (12-78); ALBUMIN 1.8 G/DL (3.4-5.0); ALKALINE PHOSPHATASE 177 IU/L (46-116); ANION GAP 4 (8-16); ASPARTATE AMINO TRANSFERASE 64 U/L (10-37); BILIRUBIN,TOTAL 8.7 MG/DL (0.1-1.0); BLOOD UREA NITROGEN 47 MG/DL (7-18); BUN/CREATININE RATIO 22.1 (5.4-32.0); CALCIUM 7.6 MG/DL (8.5-10.1); CHLORIDE 92 MMOL/L (99-107); CREATININE 2.13 MG/DL (0.60-1.10); GLUCOSE 128 MG/DL (70-104); SODIUM 132 MMOL/L (135-145); TOTAL CARBON DIOXIDE 36.1 MMOL/L (24-32); eGFR 32 ML/MIN
[2020-01-30 03:31] LABS: MAGNESIUM 1.2 MG/DL (1.5-2.4); VANCOMYCIN,RANDOM 11.2 UG/ML
[2020-01-30 03:34] LABS: ALBUMIN/GLOBULIN RATIO 0.4 (1.1-1.5); PHOSPHORUS 2.9 MG/DL (2.3-4.5); POTASSIUM 3.1 MMOL/L (3.5-5.1); TOTAL PROTEIN 6.8 G/DL (6.4-8.2)
[2020-01-30 04:20] LABS: ABG BASE EXCESS 13.3 mmol/L (-2.0-2.0); ABG HCO3 35.3 mmol/L (22.0-26.0); ABG OXYGEN SATURATION 98.3 % (94-97); ABG PCO2 (T) 36.1 mmHg (35.0-48.0); ABG PO2 (T) 103.9 mmHg (75.0-100.0); ALLEN'S TEST POSITIVE; FCOHb 1.2 % (0.0-3.9); FO2Hb 97.1 % (94-97); PATIENT TEMPERATURE 37.5; PEEP 5 cm H2O; RESPIRATORY RATE 18 b/min; TIDAL VOLUME 450 mL; TOTAL HEMOGLOBIN 13.1 G/dl (14.0-18.0)
[2020-01-30] MEDS: FENTANYL-0.9 % NACL/PF 100 ML IV PRN (05:31)
[2020-01-30] MEDS: potassium Cl 20mEq/100mL bag 100 ML IV PRN ×2 (05:34→11:41)
--- NOTE | 2020-01-30 06:13 | NUR ---
Problems reprioritized. Patient report given, questions answered & plan of care reviewed with WINNIE Stroud.
[2020-01-30] MEDS: K, MAG and/or Phos replacement - Verify level? MC SCH ×2 (08:00→08:32)
[2020-01-30] MEDS ORDERED: lactulose 20gm/30ml cup PO PRN (08:00)
[2020-01-30] MEDS: CLINDAMYCIN/D5W 900mg/50ml 50 ML IV SCH ×4 (08:04→23:57)
[2020-01-30] MEDS: methylnaltrexone br 12mg/0.6ml inj***SubQ only SQ SCH (08:04)
[2020-01-30] MEDS: furosemide 10 MG/1 ML 10ml inj IV SCH (08:05)
[2020-01-30] MEDS: apixaban 5mg tablet OGT SCH ×2 (08:05→19:40)
[2020-01-30] MEDS: lactobacillus rhamnosus 10,000 MMU CELLS/CAPSULE OGT SCH ×2 (08:05→19:40)
[2020-01-30] MEDS: famotidine/PF 10 mg/ml inj IV SCH ×2 (08:05→19:41)
[2020-01-30] MEDS: POTASSIUM BICARB 20meq eff tab 20 MEQ TABLET.EFF OGT PRN (08:05)
[2020-01-30] MEDS: amiodarone 200mg tablet OGT SCH (08:05)
[2020-01-30 09:40] LABS: TOTAL CELLS COUNTED 100
[2020-01-30 09:43] LABS: ANISOCYTOSIS 3+; ELLIPTOCYTES FEW; LARGE PLATELETS FEW; MICROCYTOSIS 1+; PLATELET ESTIMATE DECREASED; TARGET CELLS FEW
[2020-01-30 09:44] LABS: BURR CELLS 1+; HYPOCHROMASIA 1+; POLYCHROMASIA FEW; TOXIC GRANULATION 3+
[2020-01-30] MEDS ORDERED: ipratropium/albuterol 3ml nebule NEB PRN ×2 (09:45→10:40)
[2020-01-30] MEDS ORDERED: racepinephrine 11.25mg/0.5ml nebule NEB PRN (09:45)
[2020-01-30] MEDS ORDERED: racepinephrine 11.25mg/0.5ml nebule IH PRN (09:45)
[2020-01-30] MEDS ORDERED: morphine 4 MG/ML inj SYRINge IV PRN (13:25)
[2020-01-30] MEDS: NORepinephrine 8mg/ 250ml NS 250 ML IV SCH (13:45)
[2020-01-30] MEDS ORDERED: Dextrose 10%-water IV solution 1,000 ML IV PRN (14:55)
[2020-01-30] MEDS ORDERED: ipratropium/albuterol 3ml nebule NEB SCH (15:00)
[2020-01-30] MEDS: morphine 4 MG/ML inj SYRINge IV PRN ×3 (17:11→21:40)
--- NOTE | 2020-01-30 18:15 | NUR ---
Patient in room CICU 2010. I have received report from WINNIE Stroud and had the opportunity to ask questions and assume patient care. Patient has been extubated and is sitting up eating dinner, the nurse is feeding him as he is weak. I will continue to monitor.
--- NOTE | 2020-01-30 22:30 | NUR ---
Patient getting more agitated, moaning and groaning. When asked he really can't tell me what is wrong or what he needs. I asked him if he is a drinker and he said he drinks alcohol every day. I cld STAS Payne and asked her if she would order Ativan to possibly calm him down, she will look at chart and get back to me.
[2020-01-30] MEDS: LORazepam 2 mg/ml vial IV PRN (22:53)
--- NOTE | 2020-01-30 23:20 | NUR ---
Ativan was ordered and I gave to patient and so far he is calm and resting comfortably.
[2020-01-31] VITALS (24 sets, daily range): BP systolic 123–154; BP diastolic 59–100
[2020-01-31] MEDS: morphine 2 MG/ML inj. syringe IV PRN ×2 (01:28→07:43)
[2020-01-31] MEDS: NORMAL SALINE IV SCH ×4 (01:30→20:01)
[2020-01-31] MEDS: [UNRECOGNIZED DRUG - OTHER] IV SCH ×4 (01:30→20:01)
[2020-01-31 02:34] LABS: BASOPHILS % (AUTO) 0.2 % (0-1); EOSINOPHILS # (AUTO) 0.1 X10'3 (0-0.9); EOSINOPHILS % (AUTO) 0.5 % (0-6); HEMATOCRIT 34.6 % (42.0-52.0); HEMOGLOBIN 11.3 g/dl (14.0-17.9); LYMPHOCYTES # (AUTO) 2.2 X10'3 (1.1-4.8); LYMPHOCYTES % (AUTO) 14.9 % (21-51); MEAN CORPUSCULAR HEMOGLOBIN 26.2 PG (27.0-31.0); MEAN CORPUSCULAR HGB CONC 32.5 g/dL (33.0-36.5); MEAN CORPUSCULAR VOLUME 80.7 FL (78-98); MEAN PLATELET VOLUME 8.4 FL (7.4-10.4); MONOCYTES # (AUTO) 0.6 X10'3 (0-0.9); MONOCYTES % (AUTO) 4.3 % (2-12); NEUTROPHILS # (AUTO) 11.7 X10'3 (1.8-7.7); NEUTROPHILS % (AUTO) 80.1 % (42-75); PLATELET COUNT 165 X10'3 (140-440); RED BLOOD COUNT 4.29 X10'6 (4.70-6.10); RED CELL DISTRIBUTION WIDTH 21.5 % (11.5-14.5); WHITE BLOOD COUNT 14.6 X10'3 (4.5-11.0)
[2020-01-31 02:45] LABS: PARTIAL THROMBOPLASTIN TIME 35 SECONDS (22-32)
[2020-01-31 02:46] LABS: ALANINE AMINOTRANSFERASE 42 U/L (12-78); ALBUMIN 1.8 G/DL (3.4-5.0); ALKALINE PHOSPHATASE 158 IU/L (46-116); ANION GAP 4 (8-16); ASPARTATE AMINO TRANSFERASE 59 U/L (10-37); BILIRUBIN,TOTAL 7.6 MG/DL (0.1-1.0); BLOOD UREA NITROGEN 51 MG/DL (7-18); BUN/CREATININE RATIO 25.4 (5.4-32.0); CALCIUM 7.8 MG/DL (8.5-10.1); CHLORIDE 95 MMOL/L (99-107); CREATININE 2.01 MG/DL (0.60-1.10); GLUCOSE 100 MG/DL (70-104); MAGNESIUM 1.3 MG/DL (1.5-2.4); SODIUM 137 MMOL/L (135-145); TOTAL CARBON DIOXIDE 37.9 MMOL/L (24-32); VANCOMYCIN,RANDOM 7.2 UG/ML; eGFR 35 ML/MIN
[2020-01-31 02:50] LABS: ALBUMIN/GLOBULIN RATIO 0.3 (1.1-1.5); POTASSIUM 3.7 MMOL/L (3.5-5.1); TOTAL PROTEIN 7.1 G/DL (6.4-8.2)
[2020-01-31] MEDS: LORazepam 2 mg/ml vial IV PRN (03:17)
[2020-01-31] MEDS: ipratropium/albuterol 3ml nebule NEB SCH ×4 (03:56→20:48)
--- NOTE | 2020-01-31 06:26 | NUR ---
Problems reprioritized. Patient report given, questions answered & plan of care reviewed with WINNIE Laws.
--- NOTE | 2020-01-31 06:30 | NUR ---
Patient in room CICU 2010. I have received report from Lizz ZHOU and had the opportunity to ask questions and assume patient care.
[2020-01-31] MEDS: famotidine/PF 10 mg/ml inj IV SCH ×2 (07:40→20:01)
[2020-01-31] MEDS: lactobacillus rhamnosus 10,000 MMU CELLS/CAPSULE OGT SCH ×3 (07:40→20:01)
[2020-01-31] MEDS: apixaban 5mg tablet OGT SCH ×3 (07:40→20:01)
[2020-01-31] MEDS: amiodarone 200mg tablet OGT SCH ×2 (07:40→10:10)
[2020-01-31] MEDS: K, MAG and/or Phos replacement - Verify level? MC SCH (08:00)
[2020-01-31 08:20] LABS: ABG BASE EXCESS 13.6 mmol/L (-2.0-2.0); ABG HCO3 39.9 mmol/L (22.0-26.0); ABG OXYGEN SATURATION 96.6 % (94-97); ABG PCO2 (T) 58.1 mmHg (35.0-48.0); ABG PO2 (T) 90.7 mmHg (75.0-100.0); ALLEN'S TEST POSITIVE; FCOHb 1.2 % (0.0-3.9); FLOW 2 L/min; FMetHb 0.1 % (0.0-1.5); FO2Hb 95.3 % (94-97); TOTAL HEMOGLOBIN 12.6 G/dl (14.0-18.0)
[2020-01-31] MEDS: CLINDAMYCIN/D5W 900mg/50ml 50 ML IV SCH ×2 (08:42→16:37)
--- NOTE | 2020-01-31 10:30 | NUR ---
NG placed in left nare, second attempt successful with a 14F. Paitent could not wake up enough to take morning medications and was unable to swallow when prompted. New order for NG/OG tube and once tube was confirmed in place, morning meds given.
--- NOTE | 2020-01-31 11:07 | NUR ---
TF consult: Pt has been extubated. PO diet advanced to pureed food with nectar thick liquids per ST 01/29 and pt with 100% PO intake first meal. Pt documented as A/O x 2 and obtunded today. Pt s/p f/u BSS today with ST recs to resume eating once pt more alert d/t pt unable to swallow this am d/t lack of responsiveness. Pt with an NG tube in place. TF recommendations below. LBM 01/27 receiving routine Relistor with PRN bowel care available. Will continue to follow closely. Recommendations: 1) Continuous Jevity 1.2 via NG tube with goal rate of 70 mL/hr. To begin at 70 mL/hr since previously tolerating a goal rate of 80 mL/hr. To provide: 1680 mL total volume/day, 2016 kcal, 93 g protein, 1356 mL total volume 2) Additional water flush per MD given low serum Na 3) Prealbumin q Thursday/; daily weights 4) Routine bowel care; opioid antagonist per MD 5) PO diet advancement to heart healthy as medically indicated pending f/u BSS with ST Addendum: 01/31/20 at [address] Amended: Links added.
[2020-01-31] MEDS ORDERED: lactulose 20gm/30ml cup OGT PRN (11:25)
--- NOTE | 2020-01-31 16:38 | NUR ---
Right IJ D/C'd and right PIV 20G started in R AC. Patient only currently receiving TKO for abx
--- NOTE | 2020-01-31 18:18 | NUR ---
Problems reprioritized. Patient report given, questions answered & plan of care reviewed with Lizz ZHOU.
--- NOTE | 2020-01-31 18:20 | NUR ---
Patient in room CICU 2010. I have received report from WINNIE Laws and had the opportunity to ask questions and assume patient care. Patient laying in hospital bed sleeping, per dayshift he was not cooperating today and would not work with them for swallow evaluation. MD ordered NG placed and patient is being watched closely as he tries to pull out NG.
--- NOTE | 2020-01-31 23:12 | NUR ---
Patient pulled out NG tube, is confused so I will leave out for now and re-eval later.
[2020-02-01] VITALS (24 sets, daily range): BP systolic 132–173; BP diastolic 71–114
[2020-02-01] MEDS: CLINDAMYCIN/D5W 900mg/50ml 50 ML IV SCH ×3 (00:12→15:41)
[2020-02-01] MEDS: [UNRECOGNIZED DRUG - OTHER] IV SCH ×4 (02:05→19:09)
[2020-02-01] MEDS: NORMAL SALINE IV SCH ×4 (02:05→19:09)
--- NOTE | 2020-02-01 02:13 | NUR ---
Patient is drinking water and juice with no problem.
[2020-02-01] MEDS: ipratropium/albuterol 3ml nebule NEB SCH ×4 (03:28→20:44)
--- NOTE | 2020-02-01 03:54 | NUR ---
Patient is confused and trying to climb out of bed, not following commands. Per March,ASSISTANT SUPERINTENDENT ok to put in order for sitter.
--- NOTE | 2020-02-01 06:15 | NUR ---
Patient in room CICU 2010. I have received report from RN and had the opportunity to ask questions and assume patient care.
--- NOTE | 2020-02-01 06:28 | NUR ---
Problems reprioritized. Patient report given, questions answered & plan of care reviewed with WINNIE Huynh.
[2020-02-01] MEDS: K, MAG and/or Phos replacement - Verify level? MC SCH (08:00)
[2020-02-01] MEDS: amiodarone 200mg tablet OGT SCH (08:18)
[2020-02-01] MEDS: apixaban 5mg tablet OGT SCH ×2 (08:18→19:09)
[2020-02-01] MEDS: famotidine/PF 10 mg/ml inj IV SCH ×2 (08:19→19:09)
[2020-02-01] MEDS: lactobacillus rhamnosus 10,000 MMU CELLS/CAPSULE OGT SCH ×2 (08:19→19:09)
[2020-02-01] MEDS: methylnaltrexone br 12mg/0.6ml inj***SubQ only SQ SCH (08:20)
[2020-02-01 12:51] LABS: BASOPHILS % (AUTO) 0.3 % (0-1); EOSINOPHILS % (AUTO) 0.2 % (0-6); HEMATOCRIT 34.6 % (42.0-52.0); HEMOGLOBIN 11.4 g/dl (14.0-17.9); LYMPHOCYTES # (AUTO) 1.1 X10'3 (1.1-4.8); MEAN CORPUSCULAR HEMOGLOBIN 26.6 PG (27.0-31.0); MEAN CORPUSCULAR HGB CONC 32.9 g/dL (33.0-36.5); MEAN CORPUSCULAR VOLUME 80.7 FL (78-98); MEAN PLATELET VOLUME 8.2 FL (7.4-10.4); MONOCYTES # (AUTO) 0.5 X10'3 (0-0.9); MONOCYTES % (AUTO) 4.7 % (2-12); NEUTROPHILS # (AUTO) 9.1 X10'3 (1.8-7.7); NEUTROPHILS % (AUTO) 84.8 % (42-75); PLATELET COUNT 192 X10'3 (140-440); RED BLOOD COUNT 4.29 X10'6 (4.70-6.10); RED CELL DISTRIBUTION WIDTH 21.1 % (11.5-14.5); WHITE BLOOD COUNT 10.8 X10'3 (4.5-11.0)
[2020-02-01 13:03] LABS: PARTIAL THROMBOPLASTIN TIME 33 SECONDS (22-32)
[2020-02-01 13:05] LABS: ALANINE AMINOTRANSFERASE 37 U/L (12-78); ALKALINE PHOSPHATASE 146 IU/L (46-116); ANION GAP 6 (8-16); ASPARTATE AMINO TRANSFERASE 58 U/L (10-37); BILIRUBIN,TOTAL 6.5 MG/DL (0.1-1.0); BLOOD UREA NITROGEN 43 MG/DL (7-18); CALCIUM 8.4 MG/DL (8.5-10.1); CHLORIDE 102 MMOL/L (99-107); CREATININE 1.59 MG/DL (0.60-1.10); GLUCOSE 101 MG/DL (70-104); MAGNESIUM 1.6 MG/DL (1.5-2.4); SODIUM 145 MMOL/L (135-145); eGFR 45 ML/MIN
[2020-02-01 13:07] LABS: PHOSPHORUS 2.9 MG/DL (2.3-4.5); POTASSIUM 3.1 MMOL/L (3.5-5.1)
[2020-02-01 13:08] LABS: ALBUMIN/GLOBULIN RATIO 0.3 (1.1-1.5)
[2020-02-01 13:41] LABS: ANISOCYTOSIS 3+; PLATELET ESTIMATE NORMAL
[2020-02-01 13:43] LABS: HYPOCHROMASIA 1+
[2020-02-01 13:46] LABS: MICROCYTOSIS 1+
[2020-02-01] MEDS: POTASSIUM BICARB 20meq eff tab 20 MEQ TABLET.EFF OGT PRN ×2 (13:50→17:26)
--- NOTE | 2020-02-01 14:12 | NUR ---
RR and agitation and BP increased, MD aware, no new orders.
--- NOTE | 2020-02-01 18:15 | NUR ---
Patient in room CICU 2010. I have received report from Yenny ZHOU and had the opportunity to ask questions and assume patient care.
--- NOTE | 2020-02-01 18:27 | NUR ---
Problems reprioritized. Patient report given, questions answered & plan of care reviewed with RN.
[2020-02-01] MEDS: nystatin 15 GM powder TP SCH (19:10)
[2020-02-01] MEDS: penicillin G potassium inj 3,000,000 UNIT in normal saline 100ml IV soln 100 ML IV SCH ×2 (20:00→23:41)
[2020-02-01] MEDS: potassium CL 10mEq/100ml bag 100 ML IV PRN (21:22)
[2020-02-02] VITALS (17 sets, daily range): BP systolic 112–185; BP diastolic 67–118
[2020-02-02] MEDS: potassium CL 10mEq/100ml bag 100 ML IV PRN (00:43)
[2020-02-02] MEDS: ipratropium/albuterol 3ml nebule NEB SCH ×4 (03:00→20:07)
[2020-02-02] MEDS: penicillin G potassium inj 3,000,000 UNIT in normal saline 100ml IV soln 100 ML IV SCH ×2 (03:54→08:19)
[2020-02-02 05:16] LABS: PARTIAL THROMBOPLASTIN TIME 31 SECONDS (22-32)
[2020-02-02 05:25] LABS: BASOPHILS # (AUTO) 0.1 X10'3 (0-0.2); BASOPHILS % (AUTO) 0.5 % (0-1); EOSINOPHILS % (AUTO) 0.3 % (0-6); HEMATOCRIT 34.8 % (42.0-52.0); HEMOGLOBIN 11.3 g/dl (14.0-17.9); LYMPHOCYTES # (AUTO) 0.9 X10'3 (1.1-4.8); LYMPHOCYTES % (AUTO) 8.4 % (21-51); MEAN CORPUSCULAR HEMOGLOBIN 26.7 PG (27.0-31.0); MEAN CORPUSCULAR HGB CONC 32.5 g/dL (33.0-36.5); MEAN CORPUSCULAR VOLUME 82.2 FL (78-98); MEAN PLATELET VOLUME 8.2 FL (7.4-10.4); MONOCYTES # (AUTO) 0.5 X10'3 (0-0.9); MONOCYTES % (AUTO) 4.7 % (2-12); NEUTROPHILS # (AUTO) 9.7 X10'3 (1.8-7.7); NEUTROPHILS % (AUTO) 86.1 % (42-75); PLATELET COUNT 218 X10'3 (140-440); RED BLOOD COUNT 4.24 X10'6 (4.70-6.10); RED CELL DISTRIBUTION WIDTH 21.2 % (11.5-14.5); WHITE BLOOD COUNT 11.3 X10'3 (4.5-11.0)
[2020-02-02 05:26] LABS: ALANINE AMINOTRANSFERASE 45 U/L (12-78); ALKALINE PHOSPHATASE 151 IU/L (46-116); ANION GAP 5 (8-16); ASPARTATE AMINO TRANSFERASE 64 U/L (10-37); BILIRUBIN,TOTAL 6.2 MG/DL (0.1-1.0); BLOOD UREA NITROGEN 39 MG/DL (7-18); BUN/CREATININE RATIO 25.5 (5.4-32.0); CALCIUM 8.4 MG/DL (8.5-10.1); CHLORIDE 102 MMOL/L (99-107); CREATININE 1.53 MG/DL (0.60-1.10); GLUCOSE 99 MG/DL (70-104); MAGNESIUM 1.6 MG/DL (1.5-2.4); SODIUM 143 MMOL/L (135-145); TOTAL CARBON DIOXIDE 35.7 MMOL/L (24-32); eGFR 47 ML/MIN
[2020-02-02 05:29] LABS: ALBUMIN/GLOBULIN RATIO 0.3 (1.1-1.5); PHOSPHORUS 2.3 MG/DL (2.3-4.5); POTASSIUM 3.5 MMOL/L (3.5-5.1); TOTAL PROTEIN 8.1 G/DL (6.4-8.2)
--- NOTE | 2020-02-02 06:15 | NUR ---
Patient in room CICU 2010. I have received report from RN and had the opportunity to ask questions and assume patient care.
--- NOTE | 2020-02-02 06:40 | NUR ---
Problems reprioritized. Patient report given, questions answered & plan of care reviewed with Amnia Muñoz RN.
[2020-02-02 06:48] LABS: ANISOCYTOSIS 3+; HYPOCHROMASIA 1+; TARGET CELLS FEW
[2020-02-02 06:49] LABS: ELLIPTOCYTES FEW; LARGE PLATELETS FEW
[2020-02-02 06:51] LABS: PLATELET ESTIMATE NORMAL; SCHISTOCYTES FEW
[2020-02-02] MEDS: lactobacillus rhamnosus 10,000 MMU CELLS/CAPSULE OGT SCH (08:21)
[2020-02-02] MEDS: apixaban 5mg tablet OGT SCH (08:21)
[2020-02-02] MEDS: famotidine/PF 10 mg/ml inj IV SCH ×2 (08:21→19:40)
[2020-02-02] MEDS: amiodarone 200mg tablet OGT SCH (08:21)
[2020-02-02] MEDS: nystatin 15 GM powder TP SCH ×2 (08:21→19:40)
[2020-02-02] MEDS: K, MAG and/or Phos replacement - Verify level? MC SCH (08:22)
[2020-02-02] MEDS ORDERED: lactulose 20gm/30ml cup PO PRN (09:51)
[2020-02-02] MEDS ORDERED: dextrose ORAL solution 15 GM/59 ML bottle PO PRN ×2 (09:51)
[2020-02-02] MEDS ORDERED: magnesium hydroxide 30ml (MOM) UD suspension PO PRN (09:52)
[2020-02-02] MEDS ORDERED: POTASSIUM BICARB 20meq eff tab 20 MEQ TABLET.EFF PO PRN (09:52)
[2020-02-02] MEDS ORDERED: Neutra Phos packet PO PRN (09:53)
--- NOTE | 2020-02-02 12:09 | NUR ---
BP going up , MD notified.
[2020-02-02] MEDS ORDERED: furosemide 40mg tablet PO ONE (12:55)
[2020-02-02] MEDS ORDERED: carVEDilol 12.5mg tablet PO ONE (12:55)
[2020-02-02] MEDS ORDERED: lisinopril 20mg tablet PO ONE (12:55)
--- NOTE | 2020-02-02 14:16 | NUR ---
received report from Yenny ZHOU. Had opportunity to ask questions concerning Pt care and course of plan. Awaiting Arrival of Pt to room 3013B.
--- NOTE | 2020-02-02 14:45 | NUR ---
Pt arrived to room 3013B. Sitter with Pt. Vitals taken and WNL. Will continue to monitor Pt.
--- NOTE | 2020-02-02 14:53 | NUR ---
Gave report to Carlos Manuel and transferred pt to 3013B with all belongings.
[2020-02-02] MEDS: piperacillin/tazo 3.375gm/50ml 50 ML IV SCH (16:37)
--- NOTE | 2020-02-02 18:27 | NUR ---
Problems reprioritized. Patient report given, questions answered & plan of care reviewed with Hemant ZHOU.
[2020-02-02] MEDS: apixaban 5mg tablet PO SCH (19:39)
[2020-02-02] MEDS: furosemide 40mg tablet PO SCH (19:40)
[2020-02-02] MEDS: lactobacillus rhamnosus 10,000 MMU CELLS/CAPSULE PO SCH (19:40)
[2020-02-02] MEDS: carVEDilol 12.5mg tablet PO SCH (19:40)
[2020-02-03] MEDS: piperacillin/tazo 3.375gm/50ml 50 ML IV SCH ×2 (00:09→08:31)
[2020-02-03 03:00] VITALS: BP 125/73
[2020-02-03] MEDS: ipratropium/albuterol 3ml nebule NEB SCH ×4 (04:21→21:22)
[2020-02-03 05:56] LABS: BASOPHILS % (AUTO) 0.5 % (0-1); EOSINOPHILS # (AUTO) 0.1 X10'3 (0-0.9); EOSINOPHILS % (AUTO) 0.7 % (0-6); HEMOGLOBIN 10.2 g/dl (14.0-17.9); LYMPHOCYTES # (AUTO) 0.7 X10'3 (1.1-4.8); MEAN CORPUSCULAR HEMOGLOBIN 27.9 PG (27.0-31.0); MEAN CORPUSCULAR HGB CONC 33.8 g/dL (33.0-36.5); MEAN CORPUSCULAR VOLUME 82.4 FL (78-98); MEAN PLATELET VOLUME 8.3 FL (7.4-10.4); MONOCYTES # (AUTO) 0.4 X10'3 (0-0.9); MONOCYTES % (AUTO) 4.9 % (2-12); NEUTROPHILS # (AUTO) 7.4 X10'3 (1.8-7.7); NEUTROPHILS % (AUTO) 85.9 % (42-75); PLATELET COUNT 215 X10'3 (140-440); RED BLOOD COUNT 3.65 X10'6 (4.70-6.10); RED CELL DISTRIBUTION WIDTH 21.2 % (11.5-14.5); WHITE BLOOD COUNT 8.6 X10'3 (4.5-11.0)
[2020-02-03 06:11] LABS: ALANINE AMINOTRANSFERASE 40 U/L (12-78); ALBUMIN 1.6 G/DL (3.4-5.0); ALKALINE PHOSPHATASE 117 IU/L (46-116); ANION GAP 4 (8-16); ASPARTATE AMINO TRANSFERASE 52 U/L (10-37); BILIRUBIN,TOTAL 5.1 MG/DL (0.1-1.0); BLOOD UREA NITROGEN 36 MG/DL (7-18); BUN/CREATININE RATIO 23.2 (5.4-32.0); CHLORIDE 108 MMOL/L (99-107); CREATININE 1.55 MG/DL (0.60-1.10); GLUCOSE 111 MG/DL (70-104); MAGNESIUM 1.5 MG/DL (1.5-2.4); SODIUM 146 MMOL/L (135-145); TOTAL CARBON DIOXIDE 34.4 MMOL/L (24-32); eGFR 47 ML/MIN
--- NOTE | 2020-02-03 06:12 | NUR ---
Patient in room PCU 3013. I have received report from Hemant ZHOU and had the opportunity to ask questions and assume patient care.
[2020-02-03 06:13] LABS: ALBUMIN/GLOBULIN RATIO 0.3 (1.1-1.5); PHOSPHORUS 3.3 MG/DL (2.3-4.5); TOTAL PROTEIN 7.2 G/DL (6.4-8.2)
[2020-02-03 06:38] LABS: ANISOCYTOSIS 3+; ELLIPTOCYTES FEW; HYPOCHROMASIA 1+; PLATELET ESTIMATE NORMAL; POLYCHROMASIA 1+; TARGET CELLS FEW
[2020-02-03 07:00] VITALS: BP 134/78
--- NOTE | 2020-02-03 07:00 | NUR ---
Attempted to call cooler deliverer to notify critical potassium of 3.0. no answer, will replace per protocol.
[2020-02-03] MEDS: nystatin 15 GM powder TP SCH ×2 (08:31→19:51)
[2020-02-03] MEDS: famotidine/PF 10 mg/ml inj IV SCH ×2 (08:31→19:52)
[2020-02-03] MEDS: POTASSIUM BICARB 20meq eff tab 20 MEQ TABLET.EFF PO PRN ×3 (08:31→19:52)
[2020-02-03] MEDS: amiodarone 200mg tablet PO SCH (08:32)
[2020-02-03] MEDS: carVEDilol 12.5mg tablet PO SCH ×2 (08:33→19:51)
[2020-02-03] MEDS: lisinopril 20mg tablet PO SCH (08:33)
[2020-02-03] MEDS: furosemide 40mg tablet PO SCH ×2 (08:33→19:51)
[2020-02-03] MEDS: apixaban 5mg tablet PO SCH ×2 (08:33→19:51)
[2020-02-03] MEDS: lactobacillus rhamnosus 10,000 MMU CELLS/CAPSULE PO SCH ×2 (08:33→19:51)
[2020-02-03] MEDS: K, MAG and/or Phos replacement - Verify level? MC SCH (08:41)
[2020-02-03 11:00] VITALS: BP 102/56
[2020-02-03 15:00] VITALS: BP 93/57
--- NOTE | 2020-02-03 15:05 | NUR ---
Reassessment: TF off since 01/30, on pureed diet per CASTING MACHINE OPERATOR recs. Eating fair 50% average PO intake 3 days. Has sitter. Pt has increased protein needs r/t sepsis and acute respiratory failure per MD. Monitor PO intake and monitor need for ONS if suboptimal PO intake. Recommendations: 1) Pureed diet with thin liquids per CASTING MACHINE OPERATOR recs 2) bowel care as needed 3) monitor need for ONS if continues with 50% PO intake 4) wt per rx Addendum: 02/03/20 at [address] Amended: Links added.
[2020-02-03] MEDS: CefTRIAXone 2gm/D5W 50ml BAG 50 ML IV SCH (15:50)
[2020-02-03 18:00] VITALS: BP 99/59
--- NOTE | 2020-02-03 18:12 | NUR ---
Problems reprioritized. Patient report given, questions answered & plan of care reviewed with Lynnette ZHOU.
--- NOTE | 2020-02-03 18:40 | NUR ---
Problems reprioritized. Patient report given, questions answered & plan of care reviewed with Lynnette butler.
[2020-02-03 22:00] VITALS: BP 93/63
[2020-02-04 02:00] VITALS: BP 116/60
[2020-02-04] MEDS: ipratropium/albuterol 3ml nebule NEB SCH ×4 (03:16→20:01)
[2020-02-04 06:00] VITALS: BP 110/65
--- NOTE | 2020-02-04 06:32 | NUR ---
Problems reprioritized. Patient report given, questions answered & plan of care reviewed with WINNIE Colon.
--- NOTE | 2020-02-04 06:32 | NUR ---
Patient in room PCU 3013. I have received report from Lynnette ZHOU and had the opportunity to ask questions and assume patient care.
[2020-02-04 06:50] LABS: BASOPHILS # (AUTO) 0.1 X10'3 (0-0.2); BASOPHILS % (AUTO) 1.2 % (0-1); EOSINOPHILS % (AUTO) 0.5 % (0-6); HEMOGLOBIN 10.4 g/dl (14.0-17.9); LYMPHOCYTES % (AUTO) 10.4 % (21-51); MEAN CORPUSCULAR HEMOGLOBIN 27.6 PG (27.0-31.0); MEAN CORPUSCULAR HGB CONC 33.5 g/dL (33.0-36.5); MEAN CORPUSCULAR VOLUME 82.2 FL (78-98); MEAN PLATELET VOLUME 8.8 FL (7.4-10.4); MONOCYTES # (AUTO) 0.5 X10'3 (0-0.9); MONOCYTES % (AUTO) 5.5 % (2-12); NEUTROPHILS % (AUTO) 82.4 % (42-75); PLATELET COUNT 240 X10'3 (140-440); RED BLOOD COUNT 3.78 X10'6 (4.70-6.10); RED CELL DISTRIBUTION WIDTH 20.9 % (11.5-14.5); WHITE BLOOD COUNT 9.7 X10'3 (4.5-11.0)
[2020-02-04 07:07] LABS: ALANINE AMINOTRANSFERASE 41 U/L (12-78); ALBUMIN 1.7 G/DL (3.4-5.0); ALKALINE PHOSPHATASE 113 IU/L (46-116); ANION GAP 7 (8-16); ASPARTATE AMINO TRANSFERASE 57 U/L (10-37); BLOOD UREA NITROGEN 42 MG/DL (7-18); BUN/CREATININE RATIO 24.7 (5.4-32.0); CALCIUM 7.9 MG/DL (8.5-10.1); CHLORIDE 99 MMOL/L (99-107); GLUCOSE 135 MG/DL (70-104); MAGNESIUM 1.3 MG/DL (1.5-2.4); SODIUM 137 MMOL/L (135-145); TOTAL CARBON DIOXIDE 30.6 MMOL/L (24-32); eGFR 42 ML/MIN
[2020-02-04 07:08] LABS: ALBUMIN/GLOBULIN RATIO 0.3 (1.1-1.5); PHOSPHORUS 3.3 MG/DL (2.3-4.5); TOTAL PROTEIN 7.7 G/DL (6.4-8.2)
[2020-02-04 07:39] LABS: ANISOCYTOSIS 2+; MICROCYTOSIS 1+; PLATELET ESTIMATE NORMAL
[2020-02-04 07:40] LABS: LARGE PLATELETS FEW; POIKILOCYTOSIS FEW; TARGET CELLS FEW
[2020-02-04] MEDS: CefTRIAXone 2gm/D5W 50ml BAG 50 ML IV SCH (07:40)
[2020-02-04] MEDS: apixaban 5mg tablet PO SCH ×2 (07:40→20:00)
[2020-02-04] MEDS: amiodarone 200mg tablet PO SCH (07:41)
[2020-02-04] MEDS: lisinopril 20mg tablet PO SCH (07:41)
[2020-02-04] MEDS: lactobacillus rhamnosus 10,000 MMU CELLS/CAPSULE PO SCH ×2 (07:41→20:00)
[2020-02-04] MEDS: carVEDilol 12.5mg tablet PO SCH ×2 (07:41→20:00)
[2020-02-04] MEDS: famotidine/PF 10 mg/ml inj IV SCH ×2 (07:41→20:00)
[2020-02-04] MEDS: furosemide 40mg tablet PO SCH ×2 (07:41→20:00)
[2020-02-04] MEDS: nystatin 15 GM powder TP SCH ×2 (07:48→20:00)
[2020-02-04] MEDS: K, MAG and/or Phos replacement - Verify level? MC SCH (08:00)
--- NOTE | 2020-02-04 08:34 | NUR ---
received orders to start norco 5-325 and norco 10-325 for pain, and for po and IV mg replacement per dr graf
[2020-02-04] MEDS ORDERED: magnesium 4gm in 100ml NS 100 ML IV PRN (08:35)
[2020-02-04] MEDS ORDERED: HYDROcodone/acetaminophen 5mg/325mg tablet PO PRN (08:35)
[2020-02-04] MEDS: magnesium Cl slow-release 64mg tablet PO PRN ×2 (09:21→21:19)
[2020-02-04] MEDS: HYDROcodone/acetaminophen 10/325mg tab PO PRN ×2 (09:22→21:20)
[2020-02-04 15:00] VITALS: BP 98/56
--- NOTE | 2020-02-04 18:19 | NUR ---
Problems reprioritized. Patient report given, questions answered & plan of care reviewed with Mey ZHOU.
[2020-02-04 19:00] VITALS: BP 103/75
[2020-02-04 23:00] VITALS: BP 112/66
[2020-02-05] MEDS: ipratropium/albuterol 3ml nebule NEB SCH ×4 (02:51→20:37)
[2020-02-05 03:00] VITALS: BP 103/68
[2020-02-05 06:00] VITALS: BP 111/59
--- NOTE | 2020-02-05 06:30 | NUR ---
Patient in room PCU 3012. I have received report from luke murguia and had the opportunity to ask questions and assume patient care.
[2020-02-05 06:34] LABS: BASOPHILS # (AUTO) 0.1 X10'3 (0-0.2); BASOPHILS % (AUTO) 1.1 % (0-1); EOSINOPHILS # (AUTO) 0.1 X10'3 (0-0.9); EOSINOPHILS % (AUTO) 0.9 % (0-6); HEMATOCRIT 32.2 % (42.0-52.0); HEMOGLOBIN 10.6 g/dl (14.0-17.9); LYMPHOCYTES # (AUTO) 1.4 X10'3 (1.1-4.8); LYMPHOCYTES % (AUTO) 18.4 % (21-51); MEAN CORPUSCULAR HEMOGLOBIN 27.7 PG (27.0-31.0); MEAN CORPUSCULAR HGB CONC 32.9 g/dL (33.0-36.5); MEAN CORPUSCULAR VOLUME 84.2 FL (78-98); MEAN PLATELET VOLUME 8.8 FL (7.4-10.4); MONOCYTES # (AUTO) 0.5 X10'3 (0-0.9); NEUTROPHILS # (AUTO) 5.7 X10'3 (1.8-7.7); NEUTROPHILS % (AUTO) 72.6 % (42-75); PLATELET COUNT 282 X10'3 (140-440); RED BLOOD COUNT 3.82 X10'6 (4.70-6.10); RED CELL DISTRIBUTION WIDTH 20.7 % (11.5-14.5); WHITE BLOOD COUNT 7.8 X10'3 (4.5-11.0)
[2020-02-05 06:46] LABS: ALANINE AMINOTRANSFERASE 41 U/L (12-78); ALBUMIN 1.8 G/DL (3.4-5.0); ALBUMIN/GLOBULIN RATIO 0.3 (1.1-1.5); ALKALINE PHOSPHATASE 104 IU/L (46-116); ANION GAP 6 (8-16); ASPARTATE AMINO TRANSFERASE 47 U/L (10-37); BILIRUBIN,TOTAL 3.1 MG/DL (0.1-1.0); BLOOD UREA NITROGEN 49 MG/DL (7-18); BUN/CREATININE RATIO 27.8 (5.4-32.0); CALCIUM 8.3 MG/DL (8.5-10.1); CHLORIDE 102 MMOL/L (99-107); CREATININE 1.76 MG/DL (0.60-1.10); GLUCOSE 83 MG/DL (70-104); MAGNESIUM 1.5 MG/DL (1.5-2.4); PHOSPHORUS 4.2 MG/DL (2.3-4.5); POTASSIUM 3.8 MMOL/L (3.5-5.1); SODIUM 138 MMOL/L (135-145); TOTAL CARBON DIOXIDE 29.9 MMOL/L (24-32); TOTAL PROTEIN 7.9 G/DL (6.4-8.2); eGFR 40 ML/MIN
[2020-02-05 07:40] LABS: ANISOCYTOSIS 3+; LARGE PLATELETS FEW; PLATELET ESTIMATE NORMAL
[2020-02-05 07:41] LABS: ELLIPTOCYTES FEW; HYPOCHROMASIA 1+; SCHISTOCYTES FEW
[2020-02-05] MEDS: K, MAG and/or Phos replacement - Verify level? MC SCH (08:00)
[2020-02-05] MEDS: famotidine/PF 10 mg/ml inj IV SCH ×2 (08:47→19:53)
[2020-02-05] MEDS: amiodarone 200mg tablet PO SCH (08:54)
[2020-02-05] MEDS: CefTRIAXone 2gm/D5W 50ml BAG 50 ML IV SCH (08:54)
[2020-02-05] MEDS: furosemide 40mg tablet PO SCH ×2 (08:55→19:53)
[2020-02-05] MEDS: apixaban 5mg tablet PO SCH ×2 (08:55→19:53)
[2020-02-05] MEDS: lactobacillus rhamnosus 10,000 MMU CELLS/CAPSULE PO SCH ×2 (08:55→19:53)
[2020-02-05] MEDS: carVEDilol 12.5mg tablet PO SCH ×2 (08:55→19:53)
[2020-02-05] MEDS: nystatin 15 GM powder TP SCH ×2 (08:56→19:53)
[2020-02-05] MEDS: lisinopril 20mg tablet PO SCH (08:56)
[2020-02-05] MEDS: HYDROcodone/acetaminophen 10/325mg tab PO PRN (10:07)
[2020-02-05 11:00] VITALS: BP 106/64
[2020-02-05 15:00] VITALS: BP 110/68
--- NOTE | 2020-02-05 18:12 | NUR ---
Problems reprioritized. Patient report given, questions answered & plan of care reviewed with luke murguia.
[2020-02-05 19:00] VITALS: BP 123/79
[2020-02-05 23:00] VITALS: BP 91/65
[2020-02-06] MEDS: ipratropium/albuterol 3ml nebule NEB SCH ×3 (02:25→15:34)
[2020-02-06 03:00] VITALS: BP 118/67
[2020-02-06 06:00] VITALS: BP 130/75
[2020-02-06 06:16] LABS: BASOPHILS # (AUTO) 0.1 X10'3 (0-0.2); BASOPHILS % (AUTO) 1.2 % (0-1); EOSINOPHILS # (AUTO) 0.1 X10'3 (0-0.9); HEMOGLOBIN 10.4 g/dl (14.0-17.9); LYMPHOCYTES # (AUTO) 1.3 X10'3 (1.1-4.8); LYMPHOCYTES % (AUTO) 19.8 % (21-51); MEAN CORPUSCULAR HEMOGLOBIN 27.3 PG (27.0-31.0); MEAN CORPUSCULAR HGB CONC 32.6 g/dL (33.0-36.5); MEAN CORPUSCULAR VOLUME 83.6 FL (78-98); MEAN PLATELET VOLUME 8.7 FL (7.4-10.4); MONOCYTES # (AUTO) 0.5 X10'3 (0-0.9); MONOCYTES % (AUTO) 6.7 % (2-12); NEUTROPHILS # (AUTO) 4.8 X10'3 (1.8-7.7); NEUTROPHILS % (AUTO) 71.3 % (42-75); PLATELET COUNT 302 X10'3 (140-440); RED BLOOD COUNT 3.82 X10'6 (4.70-6.10); RED CELL DISTRIBUTION WIDTH 21.2 % (11.5-14.5); WHITE BLOOD COUNT 6.8 X10'3 (4.5-11.0)
--- NOTE | 2020-02-06 06:21 | NUR ---
Patient in room PCU 3012. I have received report from WINNIE VILA and had the opportunity to ask questions and assume patient care.
[2020-02-06 06:45] LABS: ALANINE AMINOTRANSFERASE 41 U/L (12-78); ALBUMIN 1.9 G/DL (3.4-5.0); ALBUMIN/GLOBULIN RATIO 0.3 (1.1-1.5); ALKALINE PHOSPHATASE 97 IU/L (46-116); ANION GAP 5 (8-16); ASPARTATE AMINO TRANSFERASE 40 U/L (10-37); BILIRUBIN,TOTAL 2.7 MG/DL (0.1-1.0); BLOOD UREA NITROGEN 41 MG/DL (7-18); BUN/CREATININE RATIO 27.2 (5.4-32.0); CALCIUM 8.4 MG/DL (8.5-10.1); CHLORIDE 102 MMOL/L (99-107); CREATININE 1.51 MG/DL (0.60-1.10); GLUCOSE 90 MG/DL (70-104); MAGNESIUM 1.6 MG/DL (1.5-2.4); PHOSPHORUS 3.2 MG/DL (2.3-4.5); SODIUM 136 MMOL/L (135-145); TOTAL CARBON DIOXIDE 28.6 MMOL/L (24-32); TOTAL PROTEIN 8.1 G/DL (6.4-8.2); eGFR 48 ML/MIN
[2020-02-06 07:05] LABS: ANISOCYTOSIS 3+; HYPOCHROMASIA 1+; ROULEAUX 1+
[2020-02-06 07:06] LABS: ELLIPTOCYTES FEW; TARGET CELLS FEW
[2020-02-06 07:07] LABS: LARGE PLATELETS FEW; PLATELET ESTIMATE NORMAL; SCHISTOCYTES FEW
[2020-02-06] MEDS: famotidine/PF 10 mg/ml inj IV SCH (08:31)
[2020-02-06] MEDS: CefTRIAXone 2gm/D5W 50ml BAG 50 ML IV SCH (08:31)
[2020-02-06] MEDS: amiodarone 200mg tablet PO SCH (08:31)
[2020-02-06] MEDS: carVEDilol 12.5mg tablet PO SCH (08:31)
[2020-02-06] MEDS: furosemide 40mg tablet PO SCH (08:32)
[2020-02-06] MEDS: lactobacillus rhamnosus 10,000 MMU CELLS/CAPSULE PO SCH (08:32)
[2020-02-06] MEDS: apixaban 5mg tablet PO SCH (08:32)
[2020-02-06] MEDS: nystatin 15 GM powder TP SCH (08:34)
[2020-02-06] MEDS: lisinopril 20mg tablet PO SCH (08:34)
[2020-02-06 11:00] VITALS: BP 104/66
--- NOTE | 2020-02-06 11:08 | NUR ---
02-05-20 AND 02-06-20, HAS NOT HAD A SITTER.
--- NOTE | 2020-02-06 11:22 | NUR ---
PT GOING TO TREAT, DISCUSSED PAIN, OFFERED PRE P.T. PAIN MED TREATMENT. DECLINED.
[2020-02-06 15:00] VITALS: BP 114/71
--- NOTE | 2020-02-06 15:28 | NUR ---
F/u 02/05: Pt advanced to MM5 diet per ADHESIVE BANDAGE MAKING OPERATOR recs PO improving to 75-100% avg meals meeting needs. No edema present at this time receiving lasix. LBM 02/03. No nutrition concerns at this time. Will continue to monitor. Recommendations: 1) minced and moist/thin liquids diet per ADHESIVE BANDAGE MAKING OPERATOR recs 2) bowel care as needed 3) wt per rx Addendum: 02/06/20 at [address] Amended: Links added.
--- NOTE | 2020-02-06 15:30 | NUR ---
REPORT CALLED TO WINNIE FINLEY [facility] AT [phone].
== END 2020-02-06 16:13 | DRG 870 ==
LOC: ER 11:25 → ED HOLD 16:22 → PCU 3S 17:38 → CICU 2S 01-24 02:35 → PCU 3S 02-02 15:12
PROVIDERS: ADMIT Internal Medicine Critical Care Medicine; ATTEND Internal Medicine Critical Care Medicine
PROC: 5A09357 Assistance with Respiratory Ventilation, Less than 24 Consecutive Hours, Continuous Positive Airway Pressure (ICD-10-PCS; principal; 2020-01-24)
PROC: 5A1955Z Respiratory Ventilation, Greater than 96 Consecutive Hours (ICD-10-PCS; 2020-01-24)
PROC: 0BH17EZ Insertion of Endotracheal Airway into Trachea, Via Natural or Artificial Opening (ICD-10-PCS; 2020-01-24)
PROC: 4A10X4Z Monitoring of Central Nervous Electrical Activity, External Approach (ICD-10-PCS; 2020-01-27)
DX: A40.0 Sepsis due to streptococcus, group A (principal); I50.23 Acute on chronic systolic (congestive) heart failure; J96.02 Acute respiratory failure with hypercapnia; J18.9 Pneumonia, unspecified organism; L03.116 Cellulitis of left lower limb; E87.2 Acidosis; I42.9 Cardiomyopathy, unspecified; L03.115 Cellulitis of right lower limb; N17.9 Acute kidney failure, unspecified; R18.8 Other ascites; R17 Unspecified jaundice; D69.6 Thrombocytopenia, unspecified; E87.6 Hypokalemia; I11.0 Hypertensive heart disease with heart failure; E88.09 Other disorders of plasma-protein metabolism, not elsewhere classified; F15.90 Other stimulant use, unspecified, uncomplicated; Z60.2 Problems related to living alone; D64.9 Anemia, unspecified; F19.10 Other psychoactive substance abuse, uncomplicated; B96.1 Klebsiella pneumoniae [K. pneumoniae] as the cause of diseases classified elsewhere; I25.10 Atherosclerotic heart disease of native coronary artery without angina pectoris; I48.0 Paroxysmal atrial fibrillation; R65.20 Severe sepsis without septic shock; Z20.828 Contact with and (suspected) exposure to other viral communicable diseases; Z79.01 Long term (current) use of anticoagulants; I25.2 Old myocardial infarction; Z86.711 Personal history of pulmonary embolism; Z95.0 Presence of cardiac pacemaker; Z83.3 Family history of diabetes mellitus; Z84.89 Family history of other specified conditions
CPT/HCPCS: 36415; 36556; 36600; 71045; 73700; 74176; 76937; 80053; 80202; 80305; 81001; 82140; 82550; 82553; 82570; 82803; 82948; 83605; 83735; 83880; 84100; 84132; 84133; 84134; 84145; 84156; 84300; 84439; 84443; 84484; 84540; 85007; 85008; 85018; 85025; 85379; 85384; 85610; 85730; 86703; 87040; 87070; 87077; 87081; 87186; 87635; 92508; 92616; 93005; 93306; 93970; 94002; 94003; 94640; 94760; 94799; 95816; 96365; 97110; 97161; 97530; 99291; C9113; C9803; G0378; J0131; J0696; J1250; J1940; J2060; J2212; J2250; J2270; J2540; J2543; J2765; J3010; J3370; J3475; J3480; J3490; J7030